=== PATIENT | female | born 1930 | race Caucasian/White ===

== ENCOUNTER 2016-09-02 07:14 | Inpatient (IN) ==
[2016-09-02] MEDS ORDERED: NITROGLYCERIN SL 0.4 MG TABLET SL PRN (07:41)
[2016-09-02] MEDS ORDERED: ASPIRIN 325 MG TABLET PO STA (07:41)
--- NOTE | 2016-09-02 07:48 | EKG Report ---
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
[2016-09-02 07:52] LABS: Basophils % 0.3 % (0.0-0.8); Eosinophils # 0.3 10*3/uL (0.0-0.87); Eosinophils % 2.1 % (0.00-10.9); Hematocrit 36.1 VOL% (35.7-47.0); Hemoglobin 11.7 GM/DL (12.0-16.0); Immature Granulocytes % 0.4 %; Immature Granulocytes Absolute 0.07 #; Lymphocytes # 0.9 10*3/uL (1.4-4.0); Lymphocytes % 5.7 % (21.3-54.2); Mean Corpuscular HGB Conc 32.4 GM/DL (32-36); Mean Corpuscular Hemoglobin 33 PG (27-34); Mean Corpuscular Volume 101.4 FL (87-102); Mean Platelet Volume 12.4 FL (9.6-12.0); Monocytes # 0.9 10*3/uL (0.11-0.8); Monocytes % 5.6 % (1.7-12.7); Neutrophils # 13.6 10*3/uL (1.4-7.4); Neutrophils % 85.9 % (38.7-73.9); Platelet Count 136 T/CUMM (130-400); Red Blood Count 3.56 MC/CUMM (3.8-5.5); Red Cell Distribution Width 14.4 % (9.3-17.3); White Blood Count 15.9 T/CUMM (4-12)
[2016-09-02] MEDS ORDERED: ASPIRIN 325 MG TABLET ONE (07:56)
[2016-09-02 08:10] LABS: Apearance,Urine CLOUDY (Clear); Bacteria,Urine Occasional /HPF (Few); Bilirubin,Urine Negative (Negative); Blood, Urine Small mg/dL (Negative); Glucose,Urine (UA) Negative (Negative); Hyaline Casts,Urine 1 /LPF (0-3); Ketones,Urine Negative (Negative); Nitrite,Urine Negative (Negative); Protein,Urine Negative; RBC,Urine 3 /HPF (0-4); Urine Color Yellow (Yellow); Urine Specific Gravity 1.008 (1.001-1.035); Urine Urobilinogen < 2.0 EU/DL (0.2-1.0); WBC,Urine 167 /HPF (0-6)
[2016-09-02 08:21] LABS: Albumin 3.6 G/DL (3.4-5.0); Bilirubin,Total 0.6 MG/DL (0.2-1.0); Calcium 8.9 MG/DL (8.5-10.1); Potassium 4.2 MMOL/L (3.5-5.1)
--- NOTE | 2016-09-02 09:02 | XRay Report ---
Portable chest Date:[09/02/2016] Clinical history: Chest pain Comparison: 12/08/2015 Technique: Portable AP sitting chest Findings: The heart is borderline in size with prior median sternotomy. Left subclavian ventricular permanent pacemaker with calcification in the aortic knob and mitral valve annulus. Chronic scarring in the lungs with skin folds. Stable mediastinum with degenerative changes and osteopenia. Impression: Status post median sternotomy with chronic scarring. Left subclavian ventricular permanent pacemaker with calcification in the mitral valve annulus. No significant change in the appearance of the chest when compared to previous exam. PROCEDURE INTERPRETED AT [facility] DEPARTMENT OF RADIOLOGY Final Report Signed by: Dr. Tomasa Vides
[2016-09-02] MEDS ORDERED: cefTRIAXone 1,000 MG in SODIUM CHLORIDE 0.9% 100 ML IV STA (09:16)
[2016-09-02] MEDS ORDERED: SODIUM CHLORIDE 0.9% 1,000 ML IV STA (09:16)
[2016-09-02] MEDS ORDERED: cefTRIAXone 1,000 MG VIAL ONE (09:19)
--- NOTE | 2016-09-02 09:56 | Emergency Department Note ---
José Luis Haddad Brittany, am scribing for, and in the presence of, Jordon Connell Jr., MD 07:48. Becki Haddad Marvin Jr., MD, personally performed the services described in this documentation, ascribed by Marcie Ordonez in my presence, and it is both accurate and complete 956 . Arrival - Arrival Chief Complaint: Chest Pain Stated Complaint: CP ED Nursing Triage Note: C/O Left upper CP X 1 hour FUSION JUNCTURE GRINDER. States pain is worse with deep breathing. Pt was recently DX with Kidney infection but has not yet filled her RX. Pt recd 5mg morphine IVP and zofran 4mg IVP FUSION JUNCTURE GRINDER. Mode of Arrival: Stretcher Limitations: No Limitations Source: Patient, Family, RN Notes Reviewed Time Seen by Provider: 09/02/16 07:28 - History of Present Illness HPI Narrative: Patient is a 85 y/o white female presenting to the ED by EMS with c/o left- sided chest pain with an onset of about an hour and a half FUSION JUNCTURE GRINDER. Patient states that she was woken out of her sleep with chest pain, that she describes as beginning in the left of the chest radiating down the left arm. Patient notes that as of now pain has progressively began to spread to the mid-sternal chest, radiating under the ribs into the back. Chest pain is worsened with deep breaths , but somewhat relieved with sitting up. Patient was diagnosed with a kidney infection two days ago per Dr. Carney, but has not taken prescribed antibiotics as of yet due to not having picked up medications from the pharmacy. Patient reports having some chills and slight abdominal pain with this. En route to the ED patient was given Zofran 4 mg and Morphine 5 mg. Family reports that patient has a history of CHF, Heart Valve Replacement, and a Pacemaker. Upon triage patient had a fever of 101. Patient has no other complaint/pain in the ED. Allergies/Adverse Reactions: Allergies Allergy/AdvReac Type Severity Reaction Status Date / Time clarithromycin [From Biaxin] Allergy RASH Verified 09/02/16 07:29 Home Medications: Home Medications Medication Instructions Recorded Confirmed Type Allopurinol 1 tablet PO BID 03/28/15 12/08/15 History Apixaban [Eliquis] 2.5 mg PO BID 03/28/15 12/08/15 History Atenolol 25 mg PO DAILY 03/28/15 12/08/15 History Clorazepate [Tranxene] 3.75 mg PO TID 03/28/15 12/08/15 History Diltiazem HCl [Cartia XT] 120 mg PO DAILY 03/28/15 12/08/15 History Multivitamin (Ocuvite) [Ocuvite] 1 tablet PO DAILY 03/28/15 12/08/15 History fentaNYL 25 MCG/HR PATCH 1 patch INTRADERM Q12HR 03/28/15 12/08/15 History [Duragesic 25 Patch] Furosemide Tab [Lasix Tab] 40 mg PO DAILY 12/08/15 12/08/15 History Omeprazole [Prilosec] 40 mg PO DAILY 12/08/15 12/08/15 History Ondansetron Tab [Zofran Tab] 4 - 8 mg PO Q8H 12/08/15 12/08/15 History Ondansetron [Ondansetron Odt] 4 mg PO Q4H PRN #10 tab.rapdis 12/08/15 Rx Potassium Chloride [Klor-Con M10] 1 tablet PO BID 12/08/15 12/08/15 History Spironolactone [Aldactone] 25 mg PO DAILY 12/08/15 12/08/15 History Review of System - Review of System 12 point system: reviewed and no additional remarkable complaints except as stated - Review of System Constitutional: Present: chills, fever Cardiovascular: Present: chest pain Gastrointestinal: Present: abdominal pain Musculoskeletal: Present: back pain Medical,Surgical,& Family Hx - Medical History Cardio: History of: Cardiac Dysrhythmia, CHF, Hypertension, Pacemaker (Dr Graves) Neurology: History of: Cerebrovascular Accident Respiratory: History of: Obstructive Sleep Apnea Renal: History of: Renal Problems (elevated creatinine) Gastrointestinal: History of: GERD - Social History Smoking Status: Never smoker Frequency of Alcohol Use: None Type of Drug Use: None Exam Physical Examination: General: Well-developed well-nourished, no apparent distress. Anxious. Patient says she could breathe better she could sit up. Patient moves around the bed easily, says she is cold Head: Normocephalic, atraumatic. Eyes: PERRLA, EOMI. Nose: No obvious acute deformities or discharge. Mouth: No obvious acute injury. Neck: Full range of motion without obvious pain. No midline tender to palpation. Lymphatic: no significant lymphadenopathy noted. Lungs: Clear to auscultation bilaterally, normal and equal air movement bilaterally, no obvious rales or wheezing. Heart: Tachycardia, Abdomen: Soft nontender, nondistended, normal active bowel sounds. Skin: No obivous acute lesions noted Musculoskeletal: No gross deformities. Neurological: No focal findings, cranial nerves II through XII grossly normal. Psychiatric: Anxious : Deferred Vital Signs: Vital Signs Temperature 101 F H 09/02/16 07:23 Pulse Rate 125 H 09/02/16 07:30 Respiratory Rate 20 09/02/16 07:30 Blood Pressure 160/91 09/02/16 07:23 O2 Sat by Pulse Oximetry 97 09/02/16 07:23 Course Course Narrative: Differential diagnosis ACS, chest wall pain, pulmonary edema, congestive heart failure, febrile illness, endocarditis, urinary tract infection, sepsis - Reevaluation(s) Reevaluation #1: Discussed with hospitalist service. They will come admit the patient to the hospital. Time: 09:54 Results - Labs CBC & BMP: 09/02/16 07:35 09/02/16 07:35 Lab Results: I have reviewed the patients labs Labs: Laboratory Tests 09/02/16 07:35 WBC 15.9 H RBC 3.56 L Hgb 11.7 L Hct 36.1 MCV 101.4 MCH 33 MCHC 32.4 RDW 14.4 Plt Count 136 MPV 12.4 H Neut % (Auto) 85.9 H Lymph % (Auto) 5.7 L [place] % (Auto) 5.6 Eos % (Auto) 2.1 Baso % (Auto) 0.3 Neut # (Auto) 13.6 H Lymph # (Auto) 0.9 L [place] # (Auto) 0.9 H Eos # (Auto) 0.3 Baso # (Auto) 0.0 Immature Gran % 0.4 Nucleated RBC % 0.0 Immature Gran # 0.07 Nucleated RBCs # 0.00 Laboratory Tests 09/02/16 07:35 Urine Color Yellow Urine Appearance Cloudy Urine pH 5.0 Ur Specific [place] 1.008 Urine Protein Negative Urine Glucose (UA) Negative Urine Ketones Negative Urine Blood Small Urine Nitrate Negative Urine Bilirubin Negative Urine Urobilinogen < 2.0 H Urine Leukocytes Moderate H Urine RBC 3 Urine WBC 167 Urine WBC Clumps Moderate Urine Bacteria Occasional Hyaline Casts 1 Microbiology 09/02/16 07:35 Nasal Aspirate Influenza Types A,B Antigen (CESAR) - Final Negative for Influenza A Ag Negative for Influenza B Ag Laboratory Tests 09/02/16 09/02/16 07:35 07:35 Sodium 143 Potassium 4.2 Chloride 105 Carbon Dioxide 26 Anion Gap 16.2 H BUN 53 H Creatinine 2.40 H GFR Calculation 18 BUN/Creatinine Ratio 22.00 H Glucose 109 H Calculated Osmolality 299.0 Calcium 8.9 Total Bilirubin 0.60 AST 21 ALT 19 Alkaline Phosphatase 165 H Troponin I 0.028 Total Protein 7.0 Albumin 3.6 Globulin 3.4 Albumin/Globulin Ratio 1.0 L - EKG EKG results: interpreted by ERMD (See EKG. Heart rate 139. Irregular. No obvious P waves. Poor quality tracing. No obvious acute ST changes. Interpretation atrial fibrillation with RVR. Nonspecific EKG otherwise.) - Diagnostic Findings Procedure: Chest x-ray: report reviewed by me, image reviewed by me (Status post sternotomy with chronic scarring. Left subclavian ventricular permanent pacemaker with calcification in the mitral valve annulus. No significant change in the appearance of the chest when compared to previous exam. I personally reviewed these chest x-rays and agree.) Disposition Clinical Impression: Acute dyspnea, Chest pain, Renal insufficiency, Urinary tract infection, Elevated serum alkaline phosphatase level, Mild sepsis, Neutrophilia, Febrile illness Case discussed with: patient, patient's family Disposition: Still a Patient Time of Disposition: 09:55
--- NOTE | 2016-09-02 10:33 | Hospitalist History & Physical ---
Assessment and Plan - Time spent with patient Time spent with patient: Greater than 30 minutes (1) Chest pain Status: Acute Current Visit: Yes (2) Sepsis Status: Acute Current Visit: No Qualifiers: Sepsis type: sepsis due to unspecified organism Qualified Code(s): A41.9 - Sepsis, unspecified organism (3) UTI (urinary tract infection) Status: Acute Current Visit: No Qualifiers: Urinary tract infection type: site unspecified Hematuria presence: without hematuria Qualified Code(s): N39.0 - Urinary tract infection, site not specified (4) Elevated serum creatinine Problem details: not clear if DUY or CKD or DUY on CKD Status: Acute Assessment and plan: check if renal US done and if FENA or FeUrea. Current Visit: Yes (5) A-fib Status: Chronic Assessment and plan: on A/C Current Visit: No Qualifiers: Atrial fibrillation type: chronic Qualified Code(s): I48.2 - Chronic atrial fibrillation (6) History of heart valve replacement Status: Chronic Current Visit: No History of Present Illness Chief complaint: fever and chest pain History of present illness: Ms. Hobbs is a 85 year old female with multiple chronic comorbidities including A. 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 Patient saw Dr. hernandez 3 days ago and was cold by the clinic for possible diagnosis of UTI and was prescribed an antibiotic that she has not picked up from the pharmacy. Patient chest pain is moderate 1 hour before coming to the ER , sharp, worse with deep breathing, with some radiation to the left side of the chest. Patient also states that she has gallbladder stones but did not do surgery because of her kidney disease. Patient denies palpitation or cough angle or headache or blurred vision vomiting or edema emesis or hemoptysis or melena. Patient was nauseated earlier today and patient feels some soreness in her abdomen. Home Medications Medication Instructions Recorded Confirmed Type Allopurinol 1 tablet PO BID 03/28/15 12/08/15 History Apixaban [Eliquis] 2.5 mg PO BID 03/28/15 12/08/15 History Atenolol 25 mg PO DAILY 03/28/15 12/08/15 History Clorazepate [Tranxene] 3.75 mg PO TID 03/28/15 12/08/15 History Diltiazem HCl [Cartia XT] 120 mg PO DAILY 03/28/15 12/08/15 History Multivitamin (Ocuvite) [Ocuvite] 1 tablet PO DAILY 03/28/15 12/08/15 History fentaNYL 25 MCG/HR PATCH 1 patch INTRADERM Q12HR 03/28/15 12/08/15 History [Duragesic 25 Patch] Furosemide Tab [Lasix Tab] 40 mg PO DAILY 12/08/15 12/08/15 History Omeprazole [Prilosec] 40 mg PO DAILY 12/08/15 12/08/15 History Ondansetron Tab [Zofran Tab] 4 - 8 mg PO Q8H 12/08/15 12/08/15 History Ondansetron [Ondansetron Odt] 4 mg PO Q4H PRN #10 tab.rapdis 12/08/15 Rx Potassium Chloride [Klor-Con M10] 1 tablet PO BID 12/08/15 12/08/15 History Spironolactone [Aldactone] 25 mg PO DAILY 12/08/15 12/08/15 History Allergies Allergy/AdvReac Type Severity Reaction Status Date / Time clarithromycin [From Biaxin] Allergy RASH Verified 09/02/16 07:29 Medical,Surgical,& Family Hx - Medical History Cardio: History of: Cardiac Dysrhythmia, CHF, Hypertension, Pacemaker (Dr Graves) Neurology: History of: Cerebrovascular Accident Respiratory: History of: Obstructive Sleep Apnea Renal: History of: Renal Problems (elevated creatinine) Gastrointestinal: History of: GERD - Social History Smoking Status: Never smoker Frequency of Alcohol Use: None Type of Drug Use: None - Constitutional Constitutional: Present: as per HPI Exam - Constitutional Vitals: Period Temp Pulse Resp BP Sys/Lamas Pulse Ox Last 24 Hr 101 F-101 F 125-125 20-20 160-160/91-91 97 Exam: General: Alert and oriented to self, place, date (day and month remembered after a pause, didn't know yr), NAD NecK: no JVD, supple lung: ctab, no wheezing heart: IRR, systolic mumur abd: mild tenderness epigastric and lower abd, no guarding, BS present EXT; no edema, cyanosis skin: warm, dry HEENT: PERRL psych: cooperative Results - Labs CBC & BMP: 09/02/16 07:35 09/02/16 07:35
[2016-09-02] MEDS ORDERED: ONDANSETRON 4 MG/2 ML VIAL IV PRN (10:44)
[2016-09-02] MEDS ORDERED: PANTOPRAZOLE 40 MG VIAL IV STA (10:54)
[2016-09-02] MEDS ORDERED: PANTOPRAZOLE 40 MG VIAL IV ONE (10:59)
[2016-09-02] MEDS ORDERED: cefTRIAXone 1,000 MG VIAL IM SCH (11:00)
[2016-09-02 11:42] LABS: Creatinine,Urine Random 40 MG/DL; Urea Nitrogen, Urine Random 421 MG/DL
--- NOTE | 2016-09-02 12:09 | Ultrasound Report ---
Exam: US abdomen Date: 09/02/2016 10:57 AM Comparison: 05/01/2016 Indication: Generalized abdominal, history of gallstones, elevated creatinine Technique: Multiple transabdominal real-time scans were obtained of the abdomen. Color flow scans obtained. Ultrasound images were captured and stored. Findings: Persistent hyperechoic foci in the gallbladder with posterior acoustical shadowing. The gallstones appear to move during the exam. The wall of the gallbladder is thickened measuring 5 mm with positive sonographic Peñaloza's sign. CBD is normal in size measuring 5 mm. The liver is normal in size with no masses.] Right kidney measures 98 mm in length with 9 mm simple appearing upper pole cyst. Left kidney measures 82 mm in length with 12 mm simple appearing upper pole cyst. The spleen and visualized pancreas and aorta have an unremarkable appearance. Portions of pancreas, aortic bifurcation, and aortic bifurcation are obscured by bowel gas. Color-flow documented in the IVC. Impression: Cholelithiasis. Gallbladder wall thickening with positive sonographic Peñaloza's sign which can be seen with possible acute cholecystitis. Biliary scan with ejection fraction may be helpful for further evaluation. Simple appearing renal cysts with cortical loss in the kidneys. Portions of pancreas and aorta are obscured by bowel gas. The Ultrasound images were captured and stored. PROCEDURE INTERPRETED AT [facility] DEPARTMENT OF RADIOLOGY Final Report Signed by: Dr. Tomasa Vides
[2016-09-02 14:04] LABS: Troponin I Only 0.348 NG/ML (0.00-0.045)
[2016-09-02] MEDS ORDERED: ALPRAZolam 0.25 MG TABLET PO PRN (16:47)
[2016-09-02] MEDS ORDERED: SODIUM CHLORIDE 0.9% 250 ML IV ONE (17:33)
[2016-09-02] MEDS: OXYBUTYNIN 5 MG TABLET PO SCH (18:00)
[2016-09-02] MEDS: SODIUM CHLORIDE 0.9% 1,000 ML IV SCH (20:52)
[2016-09-02] MEDS: APIXABAN 2.5 MG TABLET PO SCH (20:53)
[2016-09-02] MEDS: ALLOPURINOL 100 MG TABLET PO SCH (20:53)
[2016-09-02] MEDS: URSODIOL 300 MG CAPSULE PO SCH (20:53)
[2016-09-03 03:58] LABS: Basophils % 0.3 % (0.0-0.8); Eosinophils # 0.2 10*3/uL (0.0-0.87); Eosinophils % 1.4 % (0.00-10.9); Hematocrit 30.4 VOL% (35.7-47.0); Hemoglobin 9.7 GM/DL (12.0-16.0); Immature Granulocytes % 0.6 %; Immature Granulocytes Absolute 0.08 #; Lymphocytes # 1.4 10*3/uL (1.4-4.0); Lymphocytes % 11.1 % (21.3-54.2); Mean Corpuscular HGB Conc 31.9 GM/DL (32-36); Mean Corpuscular Hemoglobin 33 PG (27-34); Mean Corpuscular Volume 103.1 FL (87-102); Mean Platelet Volume 12.6 FL (9.6-12.0); Monocytes # 1.3 10*3/uL (0.11-0.8); Monocytes % 9.8 % (1.7-12.7); Neutrophils # 9.9 10*3/uL (1.4-7.4); Neutrophils % 76.8 % (38.7-73.9); Platelet Count 105 T/CUMM (130-400); Red Blood Count 2.95 MC/CUMM (3.8-5.5); Red Cell Distribution Width 14.6 % (9.3-17.3); White Blood Count 12.8 T/CUMM (4-12)
[2016-09-03 04:29] LABS: Albumin 2.7 G/DL (3.4-5.0); Bilirubin,Total 1.2 MG/DL (0.2-1.0); Calcium 8.1 MG/DL (8.5-10.1); Potassium 4.7 MMOL/L (3.5-5.1); Total Protein 5.3 G/DL (6.4-8.3)
[2016-09-03] MEDS ORDERED: cefTRIAXone 1,000 MG VIAL IM SCH (09:30)
[2016-09-03] MEDS ORDERED: cefTRIAXone 1,000 MG in SODIUM CHLORIDE 0.9% 100 ML IV SCH (09:30)
[2016-09-03] MEDS: PANTOPRAZOLE 40 MG TABLET PO SCH (10:03)
[2016-09-03] MEDS: MULTIVITAMIN (OCUVITE) TABLET PO SCH (10:03)
[2016-09-03] MEDS: URSODIOL 300 MG CAPSULE PO SCH ×2 (10:04→21:27)
[2016-09-03] MEDS: APIXABAN 2.5 MG TABLET PO SCH ×2 (10:05→21:26)
[2016-09-03] MEDS: ALLOPURINOL 100 MG TABLET PO SCH ×2 (10:05→21:26)
[2016-09-03] MEDS: OXYBUTYNIN 5 MG TABLET PO SCH (10:05)
--- NOTE | 2016-09-03 11:36 | EKG Report ---
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
--- NOTE | 2016-09-03 12:13 | Hospitalist Progress Note ---
Assessment and Plan (1) Chest pain Status: Acute Assessment and plan: Improved, likely musculoskeletal Current Visit: Yes (2) Sepsis Problem details: Could be from UTI or possibly from suspected cholecystitis Status: Acute Current Visit: No Qualifiers: Sepsis type: sepsis due to unspecified organism Qualified Code(s): A41.9 - Sepsis, unspecified organism (3) Elevated troponin I level Status: Acute Assessment and plan: First troponin negative, second troponin 0.34, no M.D. contacted, check another troponin and EKG start. This could be likely due to increased demand ischemia from sepsis and kidney insufficiency Current Visit: Yes (4) UTI (urinary tract infection) Problem details: Gram-negative rods on urine culture so far Status: Acute Assessment and plan: Continue with antibiotics, clinically improving Current Visit: No Qualifiers: Urinary tract infection type: site unspecified Hematuria presence: without hematuria Qualified Code(s): N39.0 - Urinary tract infection, site not specified (5) Cholelithiasis Problem details: With gallbladder wall thickening and Peñaloza's sign on ultrasound suspecting possible evolving cholecystitis. However the patient is clinically doing okay today and tolerating by mouth intake Status: Acute Assessment and plan: Appreciated discussion with the surgeon who will be evaluating the patient Current Visit: Yes (6) Elevated serum creatinine Problem details: not clear if DUY or CKD or DUY on CKD Status: Acute Assessment and plan: FeUrea 46 %, ultrasound showing renal cortical loss and simple looking cysts, will consult nephrology Current Visit: Yes (7) A-fib Status: Chronic Assessment and plan: on A/C Current Visit: No Qualifiers: Atrial fibrillation type: chronic Qualified Code(s): I48.2 - Chronic atrial fibrillation (8) History of heart valve replacement Status: Chronic Current Visit: No (9) Debility Status: Acute Assessment and plan: PTOT Current Visit: Yes Hospitalist: Subjective Interval history: Patient more alert today and conversant. Family members visiting. Patient denies chest pain or shortness of breath or nausea or vomiting or abdominal pain or palpitation or hemoptysis or hematemesis. No fever or chills reported. Exam - Constitutional Vitals: Period Temp Pulse Resp BP Sys/Lamas Pulse Ox Last 24 Hr 97.7 F-98.9 F 77-101 20-20 93-109/51-59 93-98 Exam: General: Alert and oriented to self, place, date (day and month remembered after a pause, didn't know yr), NAD NecK: no JVD, supple lung: ctab, no wheezing heart: IRR, systolic mumur abd: Soft, mild right upper quadrant tenderness, no guarding, BS present EXT; no edema, cyanosis skin: warm, dry HEENT: PERRL psych: cooperative Results - Labs CBC & BMP: 09/03/16 03:39 09/03/16 03:39
--- NOTE | 2016-09-03 14:50 | General Surgery Consult Note ---
Assessment and Plan - Time spent with patient Time spent with patient: Greater than 30 minutes (1) Cholelithiasis Problem details: With gallbladder wall thickening and Peñaloza's sign on ultrasound suspecting possible evolving cholecystitis. However the patient is clinically doing okay today and tolerating by mouth intake Status: Acute Assessment and plan: This appears to be an acute worsening of a chronic problem. I reviewed her previous admissions and studies from before this admission and this appears to at least date back for several months. The patient does not appear to be in distress. It is unclear if the fever that she had on admission was from this problem or from her urinary tract infection. Her abdominal exam is not very impressive and she certainly does not appear toxic appearing. She is a poor candidate for surgery which is probably why conservative treatment was recommended before. I would not recommend operative treatment at this point. I agree with treatment with IV fluids and IV antibiotics and another option to consider which I discussed with the patient and her family at length with the percutaneous drainage through radiology. I think that laparoscopic cholecystectomy would carry a very high risk of operative morbidity and even mortality and we'll also have high risk of conversion to an open procedure. Current Visit: Yes Qualifiers: Cholelithiasis location: gallbladder Cholecystitis presence: with cholecystitis (2) Acute on chronic renal failure Status: Acute Assessment and plan: This will increase her perioperative risk Current Visit: No (3) Urinary tract infection Status: Acute Assessment and plan: It is unclear if this is the source of her fever. Her gallbladder could also be a fever source Current Visit: Yes (4) History of heart valve replacement Status: Chronic Assessment and plan: She is on chronic anticoagulation and this certainly will create problems at operative intervention is needed. I will leave it up to you about holding her [facility] course. Current Visit: No History of Present Illness Chief complaint: abdominal pain History of present illness: Ms. Hobbs is a 85 year old female He was admitted with left-sided chest pain. She has had persistent pain in her abdomen dating back for several months and was a regular patient of Dr. Carney was done a workup showing gallstones and also a HIDA scan back in April which showed a decreased gallbladder ejection fraction. Patient states that Dr. Carney got an opinion from a surgeon and that conservative treatment was recommended. I do not remember if I saw her in the past or not they don't have records of this on the weekend. She is continuing to have intermittent right upper quadrant pain but it is become more frequent and is only mild in severity. She is had some nausea with it. It is worse if she eats. She had an ultrasound showing gallstones and a thickened gallbladder and a normal size common bile duct today. She states that she has had some chills in the last week and is had a decreased appetite. Home Medications Medication Instructions Recorded Confirmed Type Allopurinol 1 tablet PO BID 03/28/15 09/02/16 History Apixaban [Eliquis] 2.5 mg PO BID 03/28/15 09/02/16 History Clorazepate [Tranxene] 3.75 mg PO BID PRN 03/28/15 09/02/16 History Multivitamin (Ocuvite) [Ocuvite] 1 tablet PO DAILY 03/28/15 09/02/16 History fentaNYL 25 MCG/HR PATCH 1 patch INTRADERM Q12HR 03/28/15 09/02/16 History [Duragesic 25 Patch] Furosemide Tab [Lasix Tab] 40 mg PO BID 12/08/15 09/02/16 History Potassium Chloride [Klor-Con M10] 1 tablet PO BID 12/08/15 09/02/16 History Spironolactone [Aldactone] 25 mg PO DAILY 12/08/15 09/02/16 History Esomeprazole Magnesium [Nexium] 40 mg PO DAILY 09/02/16 09/02/16 History Losartan Potassium 100 mg PO DAILY 09/02/16 09/02/16 History Ursodiol 300 mg PO BID 09/02/16 09/02/16 History Allergies Allergy/AdvReac Type Severity Reaction Status Date / Time clarithromycin [From Biaxin] Allergy RASH Verified 09/02/16 07:29 Medical,Surgical,& Family Hx - Medical History Cardio: History of: Cardiac Dysrhythmia, CHF, Hypertension, Pacemaker (Dr Graves) Neurology: History of: Cerebrovascular Accident Respiratory: History of: Obstructive Sleep Apnea Renal: History of: Renal Problems (elevated creatinine) Gastrointestinal: History of: GERD - Surgical History Cardiac Surgeries: Sugical HX of: Cardiac Catheterization - Family History Family History: Reports;: Family Hypertension - Social History Smoking Status: Never smoker Frequency of Alcohol Use: None Type of Drug Use: None - Constitutional Constitutional: Present: anorexia, chills, fever(s), night sweats, weight loss - EENT Nose, mouth and throat: Absent: dysphagia, hoarseness, sore throat - Cardiovascular Cardiovascular: Present: chest pain at rest, dyspnea. Absent: chest pain with activity, dyspnea on exertion, syncope - Respiratory Respiratory: Present: dyspnea. Absent: cough, hemoptysis, dyspnea on exertion - Gastrointestinal Gastrointestinal: Present: abdominal pain, nausea, vomiting. Absent: bloating, coffee ground emesis, cramping, hematemesis, hematochezia, melena, jaundice - Genitourinary Genitourinary: Present: dysuria. Absent: hematuria - Musculoskeletal Musculoskeletal: Present: back pain - Neurological Neurological: Absent: focal weakness, syncope - Endocrine Endocrine: Absent: polyuria Hematologic/Lymphatic: Present: easy bleeding, easy bruising Exam - Constitutional Vitals: Period Temp Pulse Resp BP Sys/Lamas Pulse Ox Last 24 Hr 97.7 F-98.4 F 77-93 20-20 93-109/51-59 93-98 General appearance: no acute distress - Head Head exam: Present: normocephalic - Eye Eye exam: Absent: scleral icterus - ENT Mouth exam: Present: normal voice - Neck Neck exam: Present: trachea midline - Respiratory Respiratory exam: Present: clear to auscultation bilaterally. Absent: accessory muscle use - Cardiovascular Cardiovascular exam: Present: RRR - GI/Abdominal GI/Abdominal exam: Present: tenderness (mild in the right upper quadrant), soft. Absent: distended, guarding, mass, Peñaloza's sign, rebound - Extremities Exam Extremities exam: Absent: edema - Neurological Exam Neurological exam: Present: alert, oriented X3. Absent: motor sensory deficit Speech: Present: normal - Skin Skin exam: Present: normal color Results - Labs CBC & BMP: 09/03/16 03:39 09/03/16 03:39 Lab Results: I have reviewed the past 24 hour labs - Diagnostic Findings Procedure: Ultrasound: report reviewed by me
[2016-09-03] MEDS ORDERED: fentaNYL 12 MCG/HR PATCH TRANSDERM SCH (15:30)
[2016-09-03] MEDS: SODIUM CHLORIDE 0.9% 1,000 ML IV SCH (16:00)
[2016-09-03] MEDS: POLYETHYLENE GLYCOL POWDER 17 GM PACK PO SCH (16:30)
[2016-09-03] MEDS: PIPERACILLIN/TAZOBACTAM 3,375 MG in SODIUM CHLORIDE 0.9% 100 ML IV SCH (19:51)
[2016-09-04] MEDS: PIPERACILLIN/TAZOBACTAM 3,375 MG in SODIUM CHLORIDE 0.9% 100 ML IV SCH ×3 (05:15→21:17)
[2016-09-04 06:41] LABS: Basophils % 0.2 % (0.0-0.8); Eosinophils # 0.5 10*3/uL (0.0-0.87); Eosinophils % 4.5 % (0.00-10.9); Hematocrit 26.7 VOL% (35.7-47.0); Hemoglobin 8.5 GM/DL (12.0-16.0); Immature Granulocytes % 0.3 %; Immature Granulocytes Absolute 0.03 #; Lymphocytes # 1.6 10*3/uL (1.4-4.0); Lymphocytes % 16.1 % (21.3-54.2); Mean Corpuscular HGB Conc 31.8 GM/DL (32-36); Mean Corpuscular Hemoglobin 32 PG (27-34); Mean Corpuscular Volume 101.5 FL (87-102); Mean Platelet Volume 12.6 FL (9.6-12.0); Monocytes # 0.8 10*3/uL (0.11-0.8); Monocytes % 8.2 % (1.7-12.7); Neutrophils # 7.1 10*3/uL (1.4-7.4); Neutrophils % 70.7 % (38.7-73.9); Platelet Count 102 T/CUMM (130-400); Red Blood Count 2.63 MC/CUMM (3.8-5.5); Red Cell Distribution Width 14.6 % (9.3-17.3); White Blood Count 10.1 T/CUMM (4-12)
[2016-09-04 07:04] LABS: Calcium 7.9 MG/DL (8.5-10.1); Osmolality,Calculated 296.8 MOS/KG (273-304)
[2016-09-04 07:05] LABS: Hypochromasia 1+; Ovalocytes Slight; Platelet Estimate Decreased
[2016-09-04] MEDS: OXYBUTYNIN 5 MG TABLET PO SCH (09:22)
[2016-09-04] MEDS: PANTOPRAZOLE 40 MG TABLET PO SCH (09:22)
[2016-09-04] MEDS: POLYETHYLENE GLYCOL POWDER 17 GM PACK PO SCH (09:22)
[2016-09-04] MEDS: ALLOPURINOL 100 MG TABLET PO SCH ×2 (09:22→21:17)
[2016-09-04] MEDS: MULTIVITAMIN (OCUVITE) TABLET PO SCH (09:22)
[2016-09-04] MEDS: URSODIOL 300 MG CAPSULE PO SCH ×2 (09:22→21:16)
[2016-09-04] MEDS: APIXABAN 2.5 MG TABLET PO SCH ×2 (09:22→21:17)
--- NOTE | 2016-09-04 09:26 | Hospitalist Progress Note ---
Assessment and Plan (1) Sepsis Problem details: Could be from UTI or possibly from suspected cholecystitis Status: Acute Assessment and plan: Clinically improving, continue antibiotics Current Visit: No Qualifiers: Sepsis type: sepsis due to unspecified organism Qualified Code(s): A41.9 - Sepsis, unspecified organism (2) Chest pain Status: Acute Assessment and plan: Improved, likely musculoskeletal Current Visit: Yes (3) Elevated troponin I level Status: Acute Assessment and plan: In the setting of sepsis and kidney insufficiency. First troponin negative to 0.34 to 0.227, no M.D. contacted. Patient has a history of A. fib and pacemaker placement. Medical management. Current Visit: Yes (4) UTI (urinary tract infection) Problem details: Gram-negative rods on urine culture so far Status: Acute Assessment and plan: Continue with antibiotics, clinically improving Current Visit: No Qualifiers: Urinary tract infection type: site unspecified Hematuria presence: without hematuria Qualified Code(s): N39.0 - Urinary tract infection, site not specified (5) Cholelithiasis Problem details: With gallbladder wall thickening and Peñaloza's sign on ultrasound suspecting possible evolving cholecystitis. However the patient is clinically doing okay today and tolerating by mouth intake. Status: Acute Assessment and plan: Appreciated general surgery evaluation. Appears to be acute on chronic problem and no recommendation for any surgical intervention at this time as the patient is a poor candidate for it. Supportive care Current Visit: Yes Qualifiers: Cholelithiasis location: gallbladder Cholecystitis presence: with cholecystitis (6) Elevated serum creatinine Problem details: not clear if DUY or CKD or DUY on CKD Status: Acute Assessment and plan: FeUrea 46 %, ultrasound showing renal cortical loss and simple looking cysts Nephrology consulted. Creatinine 2.4 down to 2.1. Could be DUY/ATN on CKD Current Visit: Yes (7) Normocytic anemia Status: Acute Assessment and plan: iron studies and occult, H/H. Hb 8.5 Current Visit: Yes (8) A-fib Status: Chronic Assessment and plan: on A/C Current Visit: No Qualifiers: Atrial fibrillation type: chronic Qualified Code(s): I48.2 - Chronic atrial fibrillation (9) History of heart valve replacement Status: Chronic Current Visit: No (10) History of permanent cardiac pacemaker placement Status: Chronic Current Visit: Yes (11) Debility Status: Acute Assessment and plan: PTOT Current Visit: Yes Hospitalist: Subjective Interval history: Patient's abdominal pain has improved. Patient denies chest pain or SOB or nausea or vomiting or fever or chills or hemoptysis or hematemesis or diarrhea. No acute events reported overnight. Physician tolerating by mouth intake. Exam - Constitutional Vitals: Period Temp Pulse Resp BP Sys/Lamas Pulse Ox Last 24 Hr 97.8 F-98.9 F 66-83 18-20 109-126/52-64 93-100 Exam: General: Alert and oriented to self, place, date (day and month remembered after a pause, didn't know yr), NAD NecK: no JVD, supple lung: ctab, no wheezing heart: IRR, systolic mumur abd: Soft, mild right upper quadrant tenderness, no guarding, BS present EXT; no edema, cyanosis skin: warm, dry HEENT: PERRL psych: cooperative Results - Labs CBC & BMP: 09/04/16 06:16 09/04/16 06:16
[2016-09-04 10:28] LABS: % Iron Saturation 10.8 % (18-50); Ferritin 121.6 ng/ml (8-252)
--- NOTE | 2016-09-04 13:15 | Nephrology Consult Note ---
History of Present Illness Chief complaint: chronic renal failure History of present illness: Ms. Hobbs is a 85 year old female admitted with chest and abdominal pain. She has a history of chronic renal insufficiency. I was asked to see her for evaluation of this. She had dysuria prior to admission. She has received antibiotics and dysuria is much improved. She has had no gross hematuria. No history of nephrolithiasis. She has no symptoms of volume overload. Home Medications Medication Instructions Recorded Confirmed Type Allopurinol 1 tablet PO BID 03/28/15 09/02/16 History Apixaban [Eliquis] 2.5 mg PO BID 03/28/15 09/02/16 History Clorazepate [Tranxene] 3.75 mg PO BID PRN 03/28/15 09/02/16 History Multivitamin (Ocuvite) [Ocuvite] 1 tablet PO DAILY 03/28/15 09/02/16 History fentaNYL 25 MCG/HR PATCH 1 patch INTRADERM Q12HR 03/28/15 09/02/16 History [Duragesic 25 Patch] Furosemide Tab [Lasix Tab] 40 mg PO BID 12/08/15 09/02/16 History Potassium Chloride [Klor-Con M10] 1 tablet PO BID 12/08/15 09/02/16 History Spironolactone [Aldactone] 25 mg PO DAILY 12/08/15 09/02/16 History Esomeprazole Magnesium [Nexium] 40 mg PO DAILY 09/02/16 09/02/16 History Losartan Potassium 100 mg PO DAILY 09/02/16 09/02/16 History Ursodiol 300 mg PO BID 09/02/16 09/02/16 History Allergies Allergy/AdvReac Type Severity Reaction Status Date / Time clarithromycin [From Biaxin] Allergy RASH Verified 09/02/16 07:29 Medical,Surgical,& Family Hx - Medical History Cardio: History of: Cardiac Dysrhythmia, CHF, Hypertension, Pacemaker (Dr Graves) Neurology: History of: Cerebrovascular Accident Respiratory: History of: Obstructive Sleep Apnea Renal: History of: Renal Problems (elevated creatinine) Gastrointestinal: History of: GERD - Surgical History Cardiac Surgeries: Sugical HX of: Cardiac Catheterization - Family History Family History: Reports;: Family Hypertension - Social History Smoking Status: Never smoker Frequency of Alcohol Use: None Type of Drug Use: None Review of Systems 12 point system: reviewed and no additional remarkable complaints except as stated Exam - Vital Signs Vital signs: Period Temp Pulse Resp BP Sys/Lamas Pulse Ox Last 24 Hr 97.8 F-98.1 F 66-83 18-20 110-126/52-64 93-100 Exam: Gen.: Alert and oriented x3. ENT: Pupils equal round reactive to light. EOMs intact. Mucous membranes moist. Neck: Supple. No JVD or bruit. Cardiovascular: Irregularly irregular rhythm Lungs: Clear Abdomen: Soft. Mild right upper quadrant tenderness Extremities: Trace edema Results - Labs CBC & BMP: 09/04/16 06:16 09/04/16 06:16 Assessment and Plan (1) Chronic renal failure, stage 3 (moderate) Status: Acute Assessment and plan: 85-year-old woman admitted with: * Chronic renal failure, stage III. Baseline creatinine between 2 and 2.5 between April 2015 and the time of this admission. Creatinine has improved slightly from 2.4-2.1 since admission. * Urinary tract infection. Symptomatically improved with antibiotics * Cholelithiasis * Chronic A. fib * Prosthetic aortic valve Current Visit: Yes (2) Chest pain Status: Acute Current Visit: Yes (3) Cholelithiasis Problem details: With gallbladder wall thickening and Peñaloza's sign on ultrasound suspecting possible evolving cholecystitis. However the patient is clinically doing okay today and tolerating by mouth intake. Status: Acute Current Visit: Yes Qualifiers: Cholelithiasis location: gallbladder Cholecystitis presence: with cholecystitis (4) Urinary tract infection Status: Acute Current Visit: No (5) A-fib Status: Chronic Current Visit: No Qualifiers: Atrial fibrillation type: chronic Qualified Code(s): I48.2 - Chronic atrial fibrillation (6) History of heart valve replacement Status: Chronic Current Visit: No
--- NOTE | 2016-09-04 14:42 | General Surgery Progress Note ---
Assessment and Plan (1) Cholelithiasis Problem details: With gallbladder wall thickening and Peñaloza's sign on ultrasound suspecting possible evolving cholecystitis. However the patient is clinically doing okay today and tolerating by mouth intake. Status: Acute Assessment and plan: This appears to be an acute worsening of a chronic problem. I reviewed her previous admissions and studies from before this admission and this appears to at least date back for several months. The patient does not appear to be in distress. It is unclear if the fever that she had on admission was from this problem or from her urinary tract infection. Her abdominal exam is not very impressive and she certainly does not appear toxic appearing. She is a poor candidate for surgery which is probably why conservative treatment was recommended before. I would not recommend operative treatment at this point. I agree with treatment with IV fluids and IV antibiotics and another option to consider which I discussed with the patient and her family at length with the percutaneous drainage through radiology. I think that laparoscopic cholecystectomy would carry a very high risk of operative morbidity and even mortality and we'll also have high risk of conversion to an open procedure. To 6: Actually saw the patient this morning and this note is a late entry. The patient was very hungry and does not abdominal pain. Her tenderness was largely resolved. She is a high risk for operative intervention I did discuss her case with radiology and they would prefer not to do a procedure with her anticoagulation which is understandable. The patient is improving on antibiotics. I am hesitant at this point to push forward with percutaneous drainage with her anticoagulated I think we can watch for now and see how she does with conservative treatment and likelihood to hold her anticoagulation in case we need to do a percutaneous drainage in the next day or 2. Current Visit: Yes Qualifiers: Cholelithiasis location: gallbladder Cholecystitis presence: with cholecystitis (2) Acute on chronic renal failure Status: Acute Assessment and plan: This will increase her perioperative risk Current Visit: No (3) Urinary tract infection Status: Acute Assessment and plan: It is unclear if this is the source of her fever. Her gallbladder could also be a fever source Current Visit: Yes (4) History of heart valve replacement Status: Chronic Assessment and plan: She is on chronic anticoagulation and this certainly will create problems at operative intervention is needed. I will leave it up to you about holding her [facility] course. Current Visit: No Subjective Patient reports: Present: feels better, pain is less. Absent: nausea, vomiting , fever Exam - Constitutional Vitals: Period Temp Pulse Resp BP Sys/Lamas Pulse Ox Last 24 Hr 97.4 F-98.1 F 66-83 18-20 110-134/52-67 93-100 General appearance: no acute distress - Head Head exam: Present: normocephalic - Eye Eye exam: Absent: scleral icterus - ENT Mouth exam: Present: normal voice - Neck Neck exam: Present: trachea midline - Respiratory Respiratory exam: Absent: accessory muscle use - GI/Abdominal GI/Abdominal exam: Present: soft. Absent: distended, mass, tenderness, rebound - Neurological Exam Neurological exam: Present: alert, oriented X3 Results - Labs CBC & BMP: 09/04/16 06:16 09/04/16 06:16 Lab Results: I have reviewed the past 24 hour labs
[2016-09-04] MEDS: SODIUM CHLORIDE 0.9% 1,000 ML IV SCH (18:17)
[2016-09-05] MEDS: PIPERACILLIN/TAZOBACTAM 3,375 MG in SODIUM CHLORIDE 0.9% 100 ML IV SCH (05:12)
[2016-09-05 05:57] LABS: Basophils # 0.1 10*3/uL (0.0-0.2); Basophils % 0.5 % (0.0-0.8); Eosinophils # 0.5 10*3/uL (0.0-0.87); Eosinophils % 4.9 % (0.00-10.9); Hematocrit 26.2 VOL% (35.7-47.0); Hemoglobin 8.6 GM/DL (12.0-16.0); Immature Granulocytes % 0.4 %; Immature Granulocytes Absolute 0.04 #; Lymphocytes # 1.8 10*3/uL (1.4-4.0); Lymphocytes % 17.4 % (21.3-54.2); Mean Corpuscular HGB Conc 32.8 GM/DL (32-36); Mean Corpuscular Hemoglobin 33 PG (27-34); Mean Corpuscular Volume 101.6 FL (87-102); Mean Platelet Volume 12.1 FL (9.6-12.0); Monocytes # 0.7 10*3/uL (0.11-0.8); Monocytes % 7.1 % (1.7-12.7); Neutrophils # 7.2 10*3/uL (1.4-7.4); Neutrophils % 69.7 % (38.7-73.9); Platelet Count 108 T/CUMM (130-400); Red Blood Count 2.58 MC/CUMM (3.8-5.5); Red Cell Distribution Width 14.8 % (9.3-17.3); White Blood Count 10.4 T/CUMM (4-12)
[2016-09-05 06:33] LABS: Calcium 7.9 MG/DL (8.5-10.1); Osmolality,Calculated 301.4 MOS/KG (273-304); Potassium 4.3 MMOL/L (3.5-5.1)
--- NOTE | 2016-09-05 07:15 | General Surgery Progress Note ---
Assessment and Plan (1) Cholelithiasis Problem details: With gallbladder wall thickening and Peñaloza's sign on ultrasound suspecting possible evolving cholecystitis. However the patient is clinically doing okay today and tolerating by mouth intake. Status: Acute Assessment and plan: This appears to be an acute worsening of a chronic problem. I reviewed her previous admissions and studies from before this admission and this appears to at least date back for several months. The patient does not appear to be in distress. It is unclear if the fever that she had on admission was from this problem or from her urinary tract infection. Her abdominal exam is not very impressive and she certainly does not appear toxic appearing. She is a poor candidate for surgery which is probably why conservative treatment was recommended before. I would not recommend operative treatment at this point. I agree with treatment with IV fluids and IV antibiotics and another option to consider which I discussed with the patient and her family at length with the percutaneous drainage through radiology. I think that laparoscopic cholecystectomy would carry a very high risk of operative morbidity and even mortality and we'll also have high risk of conversion to an open procedure. To 6: Actually saw the patient this morning and this note is a late entry. The patient was very hungry and does not abdominal pain. Her tenderness was largely resolved. She is a high risk for operative intervention I did discuss her case with radiology and they would prefer not to do a procedure with her anticoagulation which is understandable. The patient is improving on antibiotics. I am hesitant at this point to push forward with percutaneous drainage with her anticoagulated I think we can watch for now and see how she does with conservative treatment and likelihood to hold her anticoagulation in case we need to do a percutaneous drainage in the next day or 2. 09/05: She feels well and denies any abdominal pain this morning. She has not had nausea or vomiting and tolerated a diet yesterday without abdominal pain. She appears to have responded to antibiotics. I would say that if she has any further symptoms I would be percutaneous drainage. At this point she has become asymptomatic. Current Visit: Yes Qualifiers: Cholelithiasis location: gallbladder Cholecystitis presence: with cholecystitis (2) Acute on chronic renal failure Status: Acute Assessment and plan: This will increase her perioperative risk Current Visit: No (3) Urinary tract infection Status: Acute Assessment and plan: It is unclear if this is the source of her fever. Her gallbladder could also be a fever source Current Visit: Yes (4) History of heart valve replacement Status: Chronic Assessment and plan: She is on chronic anticoagulation and this certainly will create problems at operative intervention is needed. I will leave it up to you about holding her [facility] course. Current Visit: No Subjective Patient reports: Present: feels better. Absent: still having pain, nausea, vomiting, shortness of breath, fever Exam - Constitutional Vitals: Period Temp Pulse Resp BP Sys/Lamas Pulse Ox Last 24 Hr 97.4 F-98.4 F 72-81 18-20 96-134/52-70 93-98 General appearance: no acute distress - ENT Mouth exam: Present: normal voice - Respiratory Respiratory exam: Absent: accessory muscle use - GI/Abdominal GI/Abdominal exam: Present: soft. Absent: distended, tenderness, rebound - Neurological Exam Neurological exam: Present: alert, oriented X3 Speech: Present: normal Results - Labs CBC & BMP: 09/05/16 05:43 09/05/16 05:43 Lab Results: I have reviewed the past 24 hour labs
--- NOTE | 2016-09-05 08:29 | ECHO Report ---
Lena Hobbs 09/04/2016 Exam Date: 11:37 Referring Physician: Shanti Rg Technologist: JOANA Age: 85 Ht (in): Wt (lb): FExam Location: [facility] Gender: Echo [id number]: Dyspnea, unspecified, Chest pain, Indications:unspecified, Elevated troponin, Sepsis, ARIELLE, Presence of cardiac pacemaker, Atrial fibrillation, hx AVR, Chronic renal failure BP: / HR: unknown and irregularRhythm: fairTechnical Quality: IMPRESSIONS 1. Left ventricle overall appears be normal size and systolic function with an ejection fraction 55+ percent. No gross segmental wall motion abnormalities in there may be some mild concentric left ventricular hypertrophy. 2. Underlying rhythm is not really known but at times appears to be paced. 3. Left atrium may be mildly dilated. 4. Mitral valve is sclerotic with mitral and calcification moderate mitral regurgitation. 5. Aortic valve is a prosthetic device with mild insufficiency. 6. Tricuspid valve with mild regurgitation. 7. Mildly elevated right-sided pressures. MEASUREMENTS (Male / Female) Normal Values 2D ECHO LV Diastolic Diameter PLAX 4.6 cm 4.2 - 5.9 / 3.9 - 5.3 cm LV Systolic Diameter PLAX 2.9 cm LV Fractional Shortening PLAX 35.4 % IVS Diastolic Thickness 1.2 cm 0.6 - 1.0 / 0.6 - 0.9 cm LVPW Diastolic Thickness 1.2 cm 0.6 - 1.0 / 0.6 - 0.9 cm RV Internal Dim ED PLAX 3.2 cm Aortic Root Diameter 2.7 cm LA Systolic Diameter LX 4.7 cm 3.0 - 4.0 / 2.7 - 3.8 cm DOPPLER TR Peak Velocity 293.0 cm/s TR Peak Gradient 34.3 mmHg FINDINGS Left Ventricle Left ventricle is normal size with mild concentric left ventricle hypertrophy. Overall ejection fraction is normal at 55-65%. No segmental wall motion abnormality is are noted. Right Ventricle Normal right ventricular size and systolic function. Pacemaker wire visualized in the right ventricle. Right Atrium Moderately increased right atrial size. Pacemaker wire in the right atrial cavity. Left Atrium Moderately increased left atrial size. Mitral Valve Mildly thickened mitral valve. Moderate mitral annular calcification. Moderate mitral valve regurgitation. Aortic Valve Prosthetic aortic valve. Mean gradient 27 mmHg, QUINTIN 0.75 cm. Mild aortic valve regurgitation. Tricuspid Valve Morphologically normal tricuspid valve. Mild tricuspid valve regurgitation. Tricuspid regurgitation velocities suggest a PAP of 44 mmHg. Pulmonic Valve Morphologically normal pulmonic valve without significant stenosis. There is no pulmonic regurgitation of significance. Pericardium Normal pericardium without effusion. Aorta Normal ascending aorta dimension. Jeffery Smith MD (Electronically Signed) 04 September 2016 Final Date: 19:41
[2016-09-05] MEDS: URSODIOL 300 MG CAPSULE PO SCH (09:14)
[2016-09-05] MEDS: APIXABAN 2.5 MG TABLET PO SCH (09:14)
[2016-09-05] MEDS: POLYETHYLENE GLYCOL POWDER 17 GM PACK PO SCH (09:14)
[2016-09-05] MEDS: PANTOPRAZOLE 40 MG TABLET PO SCH (09:14)
[2016-09-05] MEDS: MULTIVITAMIN (OCUVITE) TABLET PO SCH (09:14)
[2016-09-05] MEDS: OXYBUTYNIN 5 MG TABLET PO SCH (09:14)
[2016-09-05] MEDS: ALLOPURINOL 100 MG TABLET PO SCH (09:15)
--- NOTE | 2016-09-05 11:37 | Nephrology Progress Note ---
Nephrology - PN: Subj Interval history: She feels better overall today. No shortness of breath. No abdominal pain. Exam (PN)-Nephrology - Vital Signs Vital signs: Period Temp Pulse Resp BP Sys/Lamas Pulse Ox Last 24 Hr 97.4 F-98.4 F 72-81 18-20 96-134/52-70 93-98 Exam: ENT: Normal Cardiovascular: Regular rate and rhythm. No murmur rub or gallop Lungs: Clear Extremities: Trace edema - Lab 09/05/16 05:43 09/05/16 05:43 Most recent lab results Calcium 7.9 MG/DL (8.5-10.1) L 09/05/16 05:43 Assessment and Plan (1) Chronic renal failure, stage 3 (moderate) Status: Acute Assessment and plan: 85-year-old woman admitted with: * Chronic renal failure, stage III. Baseline creatinine between 2 and 2.5 between April 2015 and the time of this admission. Renal function stable. Decrease IV rate * Urinary tract infection. Culture has grown Escherichia coli. Sensitivity to Zosyn is intermediate. It is very sensitive to cephalosporins and fluoroquinolones. Recommend changing to either of these. * Cholelithiasis * Chronic A. fib * Prosthetic aortic valve Current Visit: Yes (2) Chest pain Status: Acute Current Visit: Yes (3) Cholelithiasis Problem details: With gallbladder wall thickening and Peñaloza's sign on ultrasound suspecting possible evolving cholecystitis. However the patient is clinically doing okay today and tolerating by mouth intake. Status: Acute Current Visit: Yes Qualifiers: Cholelithiasis location: gallbladder Cholecystitis presence: with cholecystitis (4) Urinary tract infection Status: Acute Current Visit: No (5) A-fib Status: Chronic Current Visit: No Qualifiers: Atrial fibrillation type: chronic Qualified Code(s): I48.2 - Chronic atrial fibrillation (6) History of heart valve replacement Status: Chronic Current Visit: No
[2016-09-05 12:17] VITALS: BP 98/46
[2016-09-05] MEDS ORDERED: cefTRIAXone 1,000 MG in SODIUM CHLORIDE 0.9% 100 ML IV SCH (13:00)
--- NOTE | 2016-09-05 13:30 | Discharge Summary ---
Hospital Course - Hospital Course Hospital Course: Ms. Hobbs is an 85-year-old female who presented with abdominal pain. She does have a history of cholelithiasis and because of her comorbidities deemed not a good surgical candidate. Patient was found to have what initially was stone urinary tract infection she was empirically started on IV Zosyn. She also has chronic kidney disease and there appeared to be an increase in her renal creatinine on presentation. She was admitted to regular medicine floor where she was made nothing by mouth. She was started on empiric Zosyn with abdominal ultrasound there are revealed cholelithiasis with positive sonogram Peñaloza's sign consistent with possible acute cholecystitis. Nephrology was consulted and felt she had acute kidney injury for chronic kidney disease and recommended continue with IV hydration and avoid nephrotoxic medications. She also had a surgery consultation in which patient had been diagnosed in the past with cholelithiasis and opted for medical management. Patient has responded to the IV antibiotics as her abdominal pain is resolved her diet has been advanced which she is tolerating. Patient stated that she had a history of a hiatal hernia was having some difficulties with swallowing. We did did obtain a speech evaluation who stated that she was swallowing okay and recommended soft Diet. Her urine culture returned with 10-20,000 Escherichia coli which was pansensitive. She had been treated approximately 5 days with IV Zosyn was also treated the coli but given it was only 10-20,000 this is not consistent with acute urinary tract infection. This is been discussed with the patient her daughter at bedside she is now stable to be discharged home. Diagnosis - Discharge Diagnosis (1) Cholelithiases Status: Chronic (2) Acute on chronic renal failure Status: Acute (3) A-fib Status: Chronic (4) History of heart valve replacement Status: Chronic Specialty Discharge - Follow Up or Referrals Follow up with: Gustabo Garcia MD [Physician] - 04/24/17 2:00 pm Discharge Plan - Discharge Data Disposition: Disch To Home/Self Care Condition at Discharge: Stable Discharge Diet: other (soft mechanical diet with chopped meats) Activity: resume usual activities as tolerated Hygiene: no restrictions Contact your physician if you experience:: Nausea/Vomiting, Bleeding - Discharge Medications New Furosemide Tab [Lasix Tab] 40 mg PO DAILY #30 tablet Continue Allopurinol 1 tablet PO BID Clorazepate [Tranxene] 3.75 mg PO BID PRN PRN Reason: Anxiety Apixaban [Eliquis] 2.5 mg PO BID Multivitamin (Ocuvite) [Ocuvite] 1 tablet PO DAILY fentaNYL 25 MCG/HR PATCH [Duragesic 25 Patch] 1 patch INTRADERM Q12HR Spironolactone [Aldactone] 25 mg PO DAILY Potassium Chloride [Klor-Con M10] 1 tablet PO BID Ursodiol 300 mg PO BID Esomeprazole Magnesium [Nexium] 40 mg PO DAILY Discontinued Furosemide Tab [Lasix Tab] 40 mg PO BID Losartan Potassium 100 mg PO DAILY - Follow Up or Referral Follow Up: Gustabo Garcia MD [Physician] - 04/24/17 2:00 pm - Forms/Instructions Additional Discharge Instructions: hold lasix, losartan and spirolactone until seen by Dr. Garcia and repeat renal function. Exam - Constitutional Vitals: Period Temp Pulse Resp BP Sys/Lamas Pulse Ox Last 24 Hr 97.5 F-98.4 F 76-81 18-20 96-116/46-70 93-98 General appearance: no acute distress - Head Head exam: Present: normocephalic, atraumatic - Eye Eye exam: Present: EOMI Pupils: Present: WAYNE - ENT ENT exam: Present: normal exam - Respiratory Respiratory exam: Present: clear to auscultation bilaterally - Cardiovascular Cardiovascular exam: Present: irregular rhythm - GI/Abdominal GI/Abdominal exam: Present: normal bowel sounds, soft - Extremities Exam Extremities exam: Present: full ROM - Neurological Exam Neurological exam: Present: alert, oriented X3, CN II-XII intact - Psychiatric Psychiatric exam: Present: normal affect, normal mood - Skin Skin exam: Present: warm, intact Discharge Results Procedures and tests throughout hospitalization: Pending Orders 09/04/16 09:37 Occult Blood, Stool Routine 09/06/16 04:00 Basic Metabolic Panel IN AM CBC [Comp Blood Count Auto Diff] IN AM Labs on day of discharge: Labs from last 24 hours 09/05/16 09/05/16 05:43 05:43 WBC 10.4 RBC 2.58 L Hgb 8.6 L Hct 26.2 L MCV 101.6 MCH 33 MCHC 32.8 RDW 14.8 Plt Count 108 L MPV 12.1 H Neut % (Auto) 69.7 Lymph % (Auto) 17.4 L Morrow % (Auto) 7.1 Eos % (Auto) 4.9 Baso % (Auto) 0.5 Neut # (Auto) 7.2 Lymph # (Auto) 1.8 Morrow # (Auto) 0.7 Eos # (Auto) 0.5 Baso # (Auto) 0.1 Immature Gran % 0.4 Nucleated RBC % 0.0 Immature Gran # 0.04 Nucleated RBCs # 0.00 Sodium 147 H Potassium 4.3 Chloride 114 H Carbon Dioxide 21 Anion Gap 16.3 H BUN 43 H Creatinine 2.30 H GFR Calculation 19 BUN/Creatinine Ratio 18.00 Glucose 80 Calculated Osmolality 301.4 Calcium 7.9 L DS: Provider Date of admission: 09/02/16 10:44 Primary care physician: Yeison Linares MD Attending physician on admission: Gil Maharaj Consults: 09/02/16 12:27 Consult to Pharmacy [CONS] Routine Reason for Pharmacy Consult: Adjust Meds Renal Funct 09/03/16 14:33 Consult to Physician [CONS] Routine Comment: general surgery, Dr. Garcia Consulting Provider: Naldo Paul III. Person Notified: dr stearns Date Notified: 09/04/16 Time Notified: 07:26 09/03/16 16:37 Consult to Physician [CONS] Routine Comment: nephrology, Cr high & cortical loss on US Consulting Provider: Discharging clinician: Courtney Rae MD Expected date of discharge: 09/05/16
[2016-09-05] MEDS ORDERED: PIPERACILLIN/TAZOBACTAM 3,375 MG in SODIUM CHLORIDE 0.9% 100 ML IV SCH (21:00)
== END 2016-09-05 15:30 | disposition home health service (06) | DRG 872 ==
LOC: EDUNIT# → EDBD → N.ED 07:14 → N.EDINP 10:44 → SUATTDRO 10:44 → N.EDINP 12:09 → N.2E 12:52
PROVIDERS: ADMIT Student in an Organized Health Care Education/Training Program; ATTEND Family Medicine

== ENCOUNTER 2017-07-06 12:41 | Inpatient (IN) ==
[2017-07-06 13:27] LABS: Basophils % 0.5 % (0.0-0.8); Eosinophils # 0.1 10*3/uL (0.0-0.87); Hematocrit 32.6 VOL% (35.7-47.0); Hemoglobin 10.6 GM/DL (12.0-16.0); Immature Granulocytes % 0.6 %; Immature Granulocytes Absolute 0.05 #; Lymphocytes # 0.8 10*3/uL (1.4-4.0); Lymphocytes % 8.6 % (21.3-54.2); Mean Corpuscular HGB Conc 32.5 GM/DL (32-36); Mean Corpuscular Hemoglobin 32 PG (27-34); Mean Corpuscular Volume 99.4 FL (87-102); Mean Platelet Volume 11.9 FL (9.6-12.0); Monocytes # 0.5 10*3/uL (0.11-0.8); Monocytes % 5.6 % (1.7-12.7); Neutrophils # 7.3 10*3/uL (1.4-7.4); Neutrophils % 83.7 % (38.7-73.9); Platelet Count 132 T/CUMM (130-400); Red Blood Count 3.28 MC/CUMM (3.8-5.5); Red Cell Distribution Width 14.8 % (9.3-17.3); White Blood Count 8.7 T/CUMM (4-12)
[2017-07-06] MEDS ORDERED: ONDANSETRON 4 MG/2 ML VIAL ONE (13:34)
[2017-07-06] MEDS ORDERED: HYDROmorphone 2 MG/1 ML VIAL ONE (13:34)
[2017-07-06] MEDS ORDERED: HYDROmorphone 2 MG/1 ML VIAL IV STA (13:35)
[2017-07-06] MEDS ORDERED: ONDANSETRON 4 MG/2 ML VIAL IV STA (13:35)
[2017-07-06 13:46] LABS: Albumin 3.5 G/DL (3.4-5.0); Bilirubin,Total 0.8 MG/DL (0.2-1.0); Calcium 8.4 MG/DL (8.5-10.1); Osmolality,Calculated 293.1 MOS/KG (273-304); Potassium 3.8 MMOL/L (3.5-5.1); Total Protein 6.3 G/DL (6.4-8.3)
[2017-07-06 13:52] LABS: Apearance,Urine Slightly Hazy (Clear); Bacteria,Urine Occasional /HPF (Few); Bilirubin,Urine Negative (Negative); Blood, Urine Negative (Negative); Glucose,Urine (UA) Negative (Negative); Hyaline Casts,Urine 2 /LPF (0-3); Ketones,Urine Negative (Negative); Mucus,Urine Occasional /LPF (Occasional); Nitrite,Urine Negative (Negative); Protein,Urine Negative; RBC,Urine 4 /HPF (0-4); Squamous Epithelial Cell,Urine Occasional /HPF (0-10); Urine Color Yellow (Yellow); Urine Specific Gravity 1.009 (1.001-1.035); Urine Urobilinogen < 2.0 EU/DL (0.2-1.0); WBC,Urine 63 /HPF (0-6)
[2017-07-06] MEDS ORDERED: cefTRIAXone 1,000 MG VIAL ONE (16:14)
[2017-07-06] MEDS ORDERED: ALUM/MAG/SIMETH/LIDO VISC 1:1 30 ML BOTTLE PO ONE (16:14)
[2017-07-06] MEDS: cefTRIAXone 1,000 MG in SYRINGE 1 EACH IV SCH (16:19)
[2017-07-06] MEDS ORDERED: ALUM/MAG/SIMETH/LIDO VISC 1:1 30 ML BOTTLE PO STA (16:33)
[2017-07-06] MEDS: FUROSEMIDE 20 MG TABLET PO SCH (21:58)
[2017-07-06] MEDS: POTASSIUM CHLORIDE 10 MEQ TABLET PO SCH (21:59)
[2017-07-06] MEDS: ALLOPURINOL 100 MG TABLET PO SCH (21:59)
[2017-07-06] MEDS: MORPHINE 2 MG/1 ML SYRINGE IV PRN (22:14)
[2017-07-07] MEDS: CLORAZEPATE 3.75 MG TABLET PO PRN ×2 (00:09→10:41)
[2017-07-07] MEDS ORDERED: HYDROmorphone 2 MG/1 ML VIAL IV ONE (00:40)
[2017-07-07] MEDS: clonazePAM 0.5 MG TABLET PO PRN (03:08)
[2017-07-07 06:53] LABS: Basophils # 0.1 10*3/uL (0.0-0.2); Basophils % 0.5 % (0.0-0.8); Eosinophils # 0.1 10*3/uL (0.0-0.87); Hematocrit 23.5 VOL% (35.7-47.0); Hemoglobin 7.8 GM/DL (12.0-16.0); Immature Granulocytes % 0.6 %; Immature Granulocytes Absolute 0.07 #; Lymphocytes # 0.9 10*3/uL (1.4-4.0); Lymphocytes % 7.7 % (21.3-54.2); Mean Corpuscular HGB Conc 33.2 GM/DL (32-36); Mean Corpuscular Hemoglobin 33 PG (27-34); Mean Corpuscular Volume 99.6 FL (87-102); Mean Platelet Volume 12.6 FL (9.6-12.0); Monocytes # 1.1 10*3/uL (0.11-0.8); Monocytes % 8.7 % (1.7-12.7); Neutrophils % 81.5 % (38.7-73.9); Platelet Count 128 T/CUMM (130-400); Red Blood Count 2.36 MC/CUMM (3.8-5.5); Red Cell Distribution Width 14.7 % (9.3-17.3); White Blood Count 12.2 T/CUMM (4-12)
[2017-07-07 06:58] LABS: PT Patient Result 10.7 SECS
[2017-07-07 07:15] LABS: Calcium 8.2 MG/DL (8.5-10.1); Osmolality,Calculated 290.4 MOS/KG (273-304); Potassium 4.8 MMOL/L (3.5-5.1)
[2017-07-07] MEDS: PANTOPRAZOLE 40 MG TABLET PO SCH ×2 (08:58→19:59)
[2017-07-07] MEDS: MULTIVITAMIN (OCUVITE) TABLET PO SCH (08:58)
[2017-07-07] MEDS: ONDANSETRON 4 MG TABLET PO PRN (08:59)
[2017-07-07] MEDS: MULTIVITAMIN (CENTRUM) TABLET PO SCH (08:59)
[2017-07-07] MEDS: ALLOPURINOL 100 MG TABLET PO SCH ×2 (08:59→19:59)
[2017-07-07] MEDS: POTASSIUM CHLORIDE 10 MEQ TABLET PO SCH ×2 (08:59→19:59)
[2017-07-07] MEDS: SPIRONOLACTONE 25 MG TABLET PO SCH (08:59)
[2017-07-07] MEDS ORDERED: FUROSEMIDE 20 MG TABLET PO SCH (09:00)
[2017-07-07] MEDS: DILTIAZEM CD 120 MG CAPSULE PO SCH (09:00)
[2017-07-07] MEDS: MORPHINE 2 MG/1 ML SYRINGE IV PRN ×4 (09:00→20:14)
[2017-07-07] MEDS ORDERED: SODIUM CHLORIDE 0.9% 1,000 ML IV PRN (09:06)
[2017-07-07] MEDS: ONDANSETRON 4 MG/2 ML VIAL IV PRN (12:09)
[2017-07-07] MEDS: FUROSEMIDE 20 MG TABLET PO SCH (16:23)
[2017-07-07] MEDS ORDERED: FUROSEMIDE 40 MG/5 ML UDCUP PO SCH (19:00)
[2017-07-07] MEDS: cefTRIAXone 1,000 MG in SYRINGE 1 EACH IV SCH (20:01)
[2017-07-07 21:22] LABS: Hematocrit 28.2 VOL% (35.7-47.0)
[2017-07-07 21:24] LABS: Hemoglobin 9.7 GM/DL (12.0-16.0)
[2017-07-08] MEDS: MORPHINE 2 MG/1 ML SYRINGE IV PRN ×2 (01:42→06:03)
[2017-07-08 02:49] LABS: Basophils % 0.3 % (0.0-0.8); Eosinophils # 0.1 10*3/uL (0.0-0.87); Eosinophils % 1.2 % (0.00-10.9); Hematocrit 27.4 VOL% (35.7-47.0); Hemoglobin 9.2 GM/DL (12.0-16.0); Immature Granulocytes % 0.5 %; Immature Granulocytes Absolute 0.06 #; Lymphocytes # 1.1 10*3/uL (1.4-4.0); Lymphocytes % 10.2 % (21.3-54.2); Mean Corpuscular HGB Conc 33.6 GM/DL (32-36); Mean Corpuscular Hemoglobin 31 PG (27-34); Mean Corpuscular Volume 91.6 FL (87-102); Mean Platelet Volume 12.7 FL (9.6-12.0); Monocytes # 1.1 10*3/uL (0.11-0.8); Monocytes % 10.2 % (1.7-12.7); Neutrophils # 8.6 10*3/uL (1.4-7.4); Neutrophils % 77.6 % (38.7-73.9); Platelet Count 87 T/CUMM (130-400); Red Blood Count 2.99 MC/CUMM (3.8-5.5); Red Cell Distribution Width 16.9 % (9.3-17.3); White Blood Count 11.1 T/CUMM (4-12)
[2017-07-08 03:03] LABS: Calcium 7.7 MG/DL (8.5-10.1); Osmolality,Calculated 289.5 MOS/KG (273-304)
[2017-07-08 04:49] LABS: Eosinophils 3 % (0-10); Lymphocytes 7 % (20-55); Myelocytes 1 %; Segmented Neutrophils 86 % (50-85); Total Cells Counted 100
[2017-07-08 04:50] LABS: Anisocytosis 1+; Platelet Estimate Decreased
[2017-07-08] MEDS ORDERED: LIDOCAINE 2% 5 ML VIAL ONE (09:10)
[2017-07-08] MEDS ORDERED: KETOROLAC 30 MG/1 ML VIAL ONE ×2 (09:10→12:01)
[2017-07-08] MEDS ORDERED: PROPOFOL 200 MG/20 ML VIAL IV ONE ×2 (09:10→11:59)
[2017-07-08] MEDS ORDERED: DEXAMETHASONE 10 MG/1 ML VIAL ONE ×2 (09:10→12:01)
[2017-07-08] MEDS ORDERED: ETOMIDATE 20 MG/10 ML VIAL IV ONE (09:10)
[2017-07-08] MEDS ORDERED: ONDANSETRON 4 MG/2 ML VIAL ONE ×2 (09:10→12:01)
[2017-07-08] MEDS ORDERED: ceFAZolin 1,000 MG VIAL ONE (10:24)
[2017-07-08] MEDS ORDERED: fentaNYL 100 MCG/2 ML VIAL ONE ×2 (12:00)
[2017-07-08] MEDS ORDERED: MIDAZOLAM 2 MG/2 ML VIAL ONE (12:00)
[2017-07-08] MEDS ORDERED: KETAMINE 500 MG/10 ML VIAL ONE (12:01)
[2017-07-08] MEDS ORDERED: SODIUM CHLORIDE 0.9% 100 ML IV ONE (12:02)
[2017-07-08] MEDS: DILTIAZEM CD 120 MG CAPSULE PO SCH (13:12)
[2017-07-08] MEDS: SPIRONOLACTONE 25 MG TABLET PO SCH (13:12)
[2017-07-08] MEDS: MULTIVITAMIN (CENTRUM) TABLET PO SCH (13:13)
[2017-07-08] MEDS: FUROSEMIDE 20 MG TABLET PO SCH ×3 (13:13→21:20)
[2017-07-08] MEDS: MULTIVITAMIN (OCUVITE) TABLET PO SCH (13:13)
[2017-07-08] MEDS: POTASSIUM CHLORIDE 10 MEQ TABLET PO SCH ×2 (13:13→21:14)
[2017-07-08] MEDS: PANTOPRAZOLE 40 MG TABLET PO SCH ×2 (13:13→21:16)
[2017-07-08] MEDS: ALLOPURINOL 100 MG TABLET PO SCH ×2 (13:13→21:14)
[2017-07-08] MEDS: cefTRIAXone 1,000 MG in SYRINGE 1 EACH IV SCH (15:59)
[2017-07-08] MEDS: ONDANSETRON 4 MG/2 ML VIAL IV PRN (18:46)
[2017-07-08] MEDS: CLORAZEPATE 3.75 MG TABLET PO PRN (21:13)
[2017-07-08] MEDS: NITROFURANTOIN MACRO/MONO 100 MG CAPSULE PO SCH (21:14)
[2017-07-08] MEDS: APIXABAN 2.5 MG TABLET PO SCH (21:15)
[2017-07-09] MEDS: MORPHINE 2 MG/1 ML SYRINGE IV PRN ×2 (07:39→17:31)
[2017-07-09] MEDS: FUROSEMIDE 20 MG TABLET PO SCH ×2 (10:01→16:05)
[2017-07-09] MEDS: MULTIVITAMIN (CENTRUM) TABLET PO SCH (10:02)
[2017-07-09] MEDS: DILTIAZEM CD 120 MG CAPSULE PO SCH (10:02)
[2017-07-09] MEDS: SPIRONOLACTONE 25 MG TABLET PO SCH (10:02)
[2017-07-09] MEDS: POTASSIUM CHLORIDE 10 MEQ TABLET PO SCH ×2 (10:03→21:03)
[2017-07-09] MEDS: APIXABAN 2.5 MG TABLET PO SCH ×2 (10:03→21:25)
[2017-07-09] MEDS: NITROFURANTOIN MACRO/MONO 100 MG CAPSULE PO SCH ×2 (10:03→21:03)
[2017-07-09] MEDS: MULTIVITAMIN (OCUVITE) TABLET PO SCH (10:04)
[2017-07-09] MEDS: ALLOPURINOL 100 MG TABLET PO SCH ×2 (10:04→21:04)
[2017-07-09] MEDS: PANTOPRAZOLE 40 MG TABLET PO SCH ×2 (10:04→21:03)
[2017-07-09] MEDS: CLORAZEPATE 3.75 MG TABLET PO PRN (10:25)
[2017-07-09 14:18] LABS: Hematocrit 21.7 VOL% (35.7-47.0)
[2017-07-09] MEDS ORDERED: SODIUM CHLORIDE 0.9% 1,000 ML IV PRN (15:43)
[2017-07-09] MEDS: CLORAZEPATE 3.75 MG TABLET PO SCH (21:03)
[2017-07-09] MEDS: DESITIN 4OZ/NYSTATIN 15 GRAM MIXTURE PASTE TOP SCH (21:04)
[2017-07-10] MEDS: MORPHINE 2 MG/1 ML SYRINGE IV PRN ×3 (02:22→21:03)
[2017-07-10 06:31] LABS: Basophils % 0.1 % (0.0-0.8); Hematocrit 27.6 VOL% (35.7-47.0); Immature Granulocytes % 1.4 %; Immature Granulocytes Absolute 0.21 #; Lymphocytes # 0.9 10*3/uL (1.4-4.0); Lymphocytes % 6.2 % (21.3-54.2); Mean Corpuscular HGB Conc 34.4 GM/DL (32-36); Mean Corpuscular Hemoglobin 31 PG (27-34); Mean Corpuscular Volume 88.7 FL (87-102); Mean Platelet Volume 12.3 FL (9.6-12.0); Monocytes # 1.3 10*3/uL (0.11-0.8); Monocytes % 8.4 % (1.7-12.7); NRBC # 0.04 10*3/uL; Neutrophils # 12.6 10*3/uL (1.4-7.4); Neutrophils % 83.9 % (38.7-73.9); Red Blood Count 3.11 MC/CUMM (3.8-5.5); Red Cell Distribution Width 16.3 % (9.3-17.3)
[2017-07-10 06:50] LABS: Osmolality,Calculated 295.8 MOS/KG (273-304); Potassium 5.2 MMOL/L (3.5-5.1)
[2017-07-10 06:53] LABS: Hemoglobin 9.5 GM/DL (12.0-16.0); Platelet Count 106 T/CUMM (130-400); White Blood Count 15.1 T/CUMM (4-12)
[2017-07-10] MEDS: APIXABAN 2.5 MG TABLET PO SCH ×2 (09:47→21:00)
[2017-07-10] MEDS: MULTIVITAMIN (CENTRUM) TABLET PO SCH (09:47)
[2017-07-10] MEDS: DILTIAZEM CD 120 MG CAPSULE PO SCH (09:47)
[2017-07-10] MEDS: PANTOPRAZOLE 40 MG TABLET PO SCH ×2 (09:48→21:00)
[2017-07-10] MEDS: NITROFURANTOIN MACRO/MONO 100 MG CAPSULE PO SCH (09:48)
[2017-07-10] MEDS: MULTIVITAMIN (OCUVITE) TABLET PO SCH (09:48)
[2017-07-10] MEDS: ALLOPURINOL 100 MG TABLET PO SCH ×2 (09:49→21:00)
[2017-07-10] MEDS: CLORAZEPATE 3.75 MG TABLET PO SCH ×3 (09:49→21:01)
[2017-07-10] MEDS: FUROSEMIDE 20 MG TABLET PO SCH (09:52)
[2017-07-10] MEDS: DESITIN 4OZ/NYSTATIN 15 GRAM MIXTURE PASTE TOP SCH ×2 (12:50→21:11)
[2017-07-10] MEDS: POTASSIUM CHLORIDE 10 MEQ TABLET PO SCH (20:25)
[2017-07-10] MEDS: LINEZOLID 600 MG TABLET PO SCH (21:00)
[2017-07-11] MEDS: MORPHINE 2 MG/1 ML SYRINGE IV PRN (01:05)
[2017-07-11 06:35] LABS: Basophils % 0.1 % (0.0-0.8); Eosinophils # 0.1 10*3/uL (0.0-0.87); Eosinophils % 0.8 % (0.00-10.9); Hemoglobin 8.6 GM/DL (12.0-16.0); Immature Granulocytes % 1.1 %; Immature Granulocytes Absolute 0.14 #; Lymphocytes # 1.1 10*3/uL (1.4-4.0); Lymphocytes % 8.7 % (21.3-54.2); Mean Corpuscular HGB Conc 34.4 GM/DL (32-36); Mean Corpuscular Hemoglobin 31 PG (27-34); Mean Corpuscular Volume 90.6 FL (87-102); Mean Platelet Volume 11.8 FL (9.6-12.0); Monocytes # 1.2 10*3/uL (0.11-0.8); Monocytes % 9.6 % (1.7-12.7); NRBC # 0.04 10*3/uL; Neutrophils % 79.7 % (38.7-73.9); Platelet Count 101 T/CUMM (130-400); Red Blood Count 2.76 MC/CUMM (3.8-5.5); White Blood Count 12.5 T/CUMM (4-12)
[2017-07-11 07:18] LABS: Calcium 7.3 MG/DL (8.5-10.1); Magnesium 2.2 MG/DL (1.8-2.4); Osmolality,Calculated 295.7 MOS/KG (273-304); Potassium 4.3 MMOL/L (3.5-5.1)
[2017-07-11] MEDS: MULTIVITAMIN (CENTRUM) TABLET PO SCH (08:24)
[2017-07-11] MEDS: CLORAZEPATE 3.75 MG TABLET PO SCH ×2 (08:24→20:33)
[2017-07-11] MEDS: MULTIVITAMIN (OCUVITE) TABLET PO SCH (08:24)
[2017-07-11] MEDS: LINEZOLID 600 MG TABLET PO SCH ×2 (08:24→20:33)
[2017-07-11] MEDS: PANTOPRAZOLE 40 MG TABLET PO SCH ×2 (08:24→20:33)
[2017-07-11] MEDS: DESITIN 4OZ/NYSTATIN 15 GRAM MIXTURE PASTE TOP SCH ×2 (08:24→23:09)
[2017-07-11] MEDS: APIXABAN 2.5 MG TABLET PO SCH ×2 (08:24→20:33)
[2017-07-11] MEDS: DILTIAZEM CD 120 MG CAPSULE PO SCH (08:24)
[2017-07-11] MEDS: ALLOPURINOL 100 MG TABLET PO SCH ×2 (08:24→20:33)
[2017-07-11] MEDS: ACETAMINOPHEN 325 MG TABLET PO PRN ×2 (12:50→18:36)
[2017-07-11] MEDS: oxyCODONE IR 5 MG TABLET PO PRN (20:34)
[2017-07-12] MEDS: oxyCODONE IR 5 MG TABLET PO PRN ×2 (00:16→04:19)
[2017-07-12] MEDS: clonazePAM 0.5 MG TABLET PO PRN ×2 (00:18→17:39)
[2017-07-12] MEDS ORDERED: MORPHINE 2 MG/1 ML SYRINGE IM PRN ×2 (01:18→02:00)
[2017-07-12 06:39] LABS: Basophils % 0.2 % (0.0-0.8); Eosinophils # 0.3 10*3/uL (0.0-0.87); Eosinophils % 2.3 % (0.00-10.9); Hematocrit 23.6 VOL% (35.7-47.0); Hemoglobin 7.9 GM/DL (12.0-16.0); Immature Granulocytes % 1.2 %; Immature Granulocytes Absolute 0.14 #; Lymphocytes # 1.3 10*3/uL (1.4-4.0); Lymphocytes % 10.8 % (21.3-54.2); Mean Corpuscular HGB Conc 33.5 GM/DL (32-36); Mean Corpuscular Hemoglobin 30 PG (27-34); Mean Corpuscular Volume 90.8 FL (87-102); Mean Platelet Volume 11.2 FL (9.6-12.0); Monocytes # 1.1 10*3/uL (0.11-0.8); Monocytes % 9.3 % (1.7-12.7); NRBC # 0.03 10*3/uL; Neutrophils # 8.8 10*3/uL (1.4-7.4); Neutrophils % 76.2 % (38.7-73.9); Platelet Count 120 T/CUMM (130-400); Red Cell Distribution Width 17.1 % (9.3-17.3); White Blood Count 11.6 T/CUMM (4-12)
[2017-07-12 07:08] LABS: Calcium 7.7 MG/DL (8.5-10.1); Osmolality,Calculated 292.7 MOS/KG (273-304); Potassium 3.5 MMOL/L (3.5-5.1)
[2017-07-12] MEDS ORDERED: SODIUM CHLORIDE 0.9% 1,000 ML IV PRN (08:09)
[2017-07-12] MEDS: DESITIN 4OZ/NYSTATIN 15 GRAM MIXTURE PASTE TOP SCH ×2 (09:16→20:36)
[2017-07-12] MEDS: PANTOPRAZOLE 40 MG TABLET PO SCH ×2 (09:16→20:35)
[2017-07-12] MEDS: MULTIVITAMIN (CENTRUM) TABLET PO SCH (09:16)
[2017-07-12] MEDS: CLORAZEPATE 3.75 MG TABLET PO SCH ×2 (09:16→20:35)
[2017-07-12] MEDS: ALLOPURINOL 100 MG TABLET PO SCH ×2 (09:16→20:35)
[2017-07-12] MEDS: APIXABAN 2.5 MG TABLET PO SCH ×2 (09:16→20:35)
[2017-07-12] MEDS: MULTIVITAMIN (OCUVITE) TABLET PO SCH (09:16)
[2017-07-12] MEDS: DILTIAZEM CD 120 MG CAPSULE PO SCH (09:16)
[2017-07-12] MEDS: LINEZOLID 600 MG TABLET PO SCH ×2 (09:18→20:35)
[2017-07-12] MEDS ORDERED: fentaNYL 25 MCG/HR PATCH TRANSDERM SCH (12:00)
[2017-07-12] MEDS: ONDANSETRON 4 MG TABLET PO PRN (12:07)
[2017-07-12] MEDS: MORPHINE 2 MG/1 ML SYRINGE IV PRN ×2 (12:08→20:38)
[2017-07-12] MEDS: ONDANSETRON 4 MG/2 ML VIAL IV PRN ×2 (17:44→21:22)
[2017-07-13] MEDS: MORPHINE 2 MG/1 ML SYRINGE IV PRN ×4 (00:52→21:34)
[2017-07-13 05:17] LABS: Basophils % 0.3 % (0.0-0.8); Eosinophils # 0.1 10*3/uL (0.0-0.87); Hematocrit 28.8 VOL% (35.7-47.0); Immature Granulocytes % 0.8 %; Immature Granulocytes Absolute 0.09 #; Lymphocytes # 0.9 10*3/uL (1.4-4.0); Lymphocytes % 7.4 % (21.3-54.2); Mean Corpuscular HGB Conc 35.1 GM/DL (32-36); Mean Corpuscular Hemoglobin 30 PG (27-34); Mean Corpuscular Volume 86.7 FL (87-102); Monocytes # 1.1 10*3/uL (0.11-0.8); Monocytes % 9.5 % (1.7-12.7); NRBC # 0.03 10*3/uL; Neutrophils # 9.3 10*3/uL (1.4-7.4); Platelet Count 111 T/CUMM (130-400); Red Cell Distribution Width 17.6 % (9.3-17.3); White Blood Count 11.5 T/CUMM (4-12)
[2017-07-13 05:33] LABS: Red Blood Count 3.32 MC/CUMM (3.8-5.5)
[2017-07-13 05:34] LABS: Hemoglobin 10.1 GM/DL (12.0-16.0)
[2017-07-13 05:46] LABS: Calcium 7.5 MG/DL (8.5-10.1); Osmolality,Calculated 291.5 MOS/KG (273-304); Potassium 3.3 MMOL/L (3.5-5.1)
[2017-07-13] MEDS: DESITIN 4OZ/NYSTATIN 15 GRAM MIXTURE PASTE TOP SCH ×2 (08:15→21:26)
[2017-07-13] MEDS: ALLOPURINOL 100 MG TABLET PO SCH ×2 (09:48→21:25)
[2017-07-13] MEDS: PANTOPRAZOLE 40 MG TABLET PO SCH ×2 (09:48→21:26)
[2017-07-13] MEDS: CLORAZEPATE 3.75 MG TABLET PO SCH ×2 (09:48→21:26)
[2017-07-13] MEDS: MULTIVITAMIN (OCUVITE) TABLET PO SCH (09:48)
[2017-07-13] MEDS: DILTIAZEM CD 120 MG CAPSULE PO SCH (09:48)
[2017-07-13] MEDS: APIXABAN 2.5 MG TABLET PO SCH ×2 (09:48→21:25)
[2017-07-13] MEDS: MULTIVITAMIN (CENTRUM) TABLET PO SCH (09:48)
[2017-07-13] MEDS: LINEZOLID 600 MG TABLET PO SCH ×2 (09:49→21:26)
[2017-07-13] MEDS: ONDANSETRON 4 MG/2 ML VIAL IV PRN (10:21)
[2017-07-13] MEDS: MEGESTROL 40 MG TABLET PO SCH ×2 (15:15→21:25)
[2017-07-14] MEDS: MORPHINE 2 MG/1 ML SYRINGE IV PRN ×3 (03:55→20:37)
[2017-07-14 05:52] LABS: Basophils % 0.2 % (0.0-0.8); Eosinophils # 0.2 10*3/uL (0.0-0.87); Eosinophils % 1.8 % (0.00-10.9); Hematocrit 28.3 VOL% (35.7-47.0); Hemoglobin 9.7 GM/DL (12.0-16.0); Immature Granulocytes % 1.1 %; Immature Granulocytes Absolute 0.11 #; Lymphocytes # 0.7 10*3/uL (1.4-4.0); Lymphocytes % 6.7 % (21.3-54.2); Mean Corpuscular HGB Conc 34.3 GM/DL (32-36); Mean Corpuscular Hemoglobin 30 PG (27-34); Mean Corpuscular Volume 87.3 FL (87-102); Mean Platelet Volume 11.6 FL (9.6-12.0); Monocytes # 0.9 10*3/uL (0.11-0.8); NRBC # 0.02 10*3/uL; Neutrophils # 8.5 10*3/uL (1.4-7.4); Neutrophils % 81.2 % (38.7-73.9); Platelet Count 132 T/CUMM (130-400); Red Blood Count 3.24 MC/CUMM (3.8-5.5); Red Cell Distribution Width 17.5 % (9.3-17.3); White Blood Count 10.4 T/CUMM (4-12)
[2017-07-14 06:27] LABS: Calcium 7.7 MG/DL (8.5-10.1); Osmolality,Calculated 289.5 MOS/KG (273-304)
[2017-07-14] MEDS: clonazePAM 0.5 MG TABLET PO PRN (06:28)
[2017-07-14] MEDS: DILTIAZEM CD 120 MG CAPSULE PO SCH (09:42)
[2017-07-14] MEDS: CLORAZEPATE 3.75 MG TABLET PO SCH ×2 (09:43→20:37)
[2017-07-14] MEDS: PANTOPRAZOLE 40 MG TABLET PO SCH ×2 (09:43→20:37)
[2017-07-14] MEDS: MULTIVITAMIN (CENTRUM) TABLET PO SCH (09:43)
[2017-07-14] MEDS: APIXABAN 2.5 MG TABLET PO SCH ×2 (09:43→20:37)
[2017-07-14] MEDS: MULTIVITAMIN (OCUVITE) TABLET PO SCH (09:43)
[2017-07-14] MEDS: MEGESTROL 40 MG TABLET PO SCH ×3 (09:43→20:37)
[2017-07-14] MEDS: LINEZOLID 600 MG TABLET PO SCH (09:44)
[2017-07-14] MEDS: ALLOPURINOL 100 MG TABLET PO SCH ×2 (09:44→20:37)
[2017-07-14] MEDS ORDERED: fentaNYL 25 MCG/HR PATCH TRANSDERM SCH (10:00)
[2017-07-14] MEDS: ONDANSETRON 4 MG/2 ML VIAL IV PRN ×2 (12:03→23:10)
[2017-07-14] MEDS ORDERED: clonazePAM 0.5 MG TABLET PO PRN (14:44)
[2017-07-14] MEDS: DESITIN 4OZ/NYSTATIN 15 GRAM MIXTURE PASTE TOP SCH ×2 (16:20→20:37)
[2017-07-15] MEDS: MORPHINE 2 MG/1 ML SYRINGE IV PRN ×3 (02:46→13:40)
[2017-07-15 03:36] LABS: Amorphous Crystals,Urine Occasional /HPF (Few); Apearance,Urine CLEAR (Clear); Bilirubin,Urine Negative (Negative); Blood, Urine Negative (Negative); Glucose,Urine (UA) Negative (Negative); Ketones,Urine Negative (Negative); Mucus,Urine Occasional /LPF (Occasional); Nitrite,Urine Negative (Negative); Protein,Urine Negative; RBC,Urine <1 /HPF (0-4); Urine Color Yellow (Yellow); Urine Specific Gravity 1.009 (1.001-1.035); Urine Urobilinogen < 2.0 EU/DL (0.2-1.0); WBC,Urine 1 /HPF (0-6)
[2017-07-15 05:48] LABS: Calcium 7.8 MG/DL (8.5-10.1); Osmolality,Calculated 292.3 MOS/KG (273-304); Potassium 3.5 MMOL/L (3.5-5.1)
[2017-07-15 07:44] LABS: Basophils % 0.3 % (0.0-0.8); Eosinophils # 0.2 10*3/uL (0.0-0.87); Eosinophils % 2.9 % (0.00-10.9); Hematocrit 27.9 VOL% (35.7-47.0); Hemoglobin 9.6 GM/DL (12.0-16.0); Immature Granulocytes % 1.5 %; Immature Granulocytes Absolute 0.11 #; Lymphocytes # 0.8 10*3/uL (1.4-4.0); Lymphocytes % 10.4 % (21.3-54.2); Mean Corpuscular HGB Conc 34.4 GM/DL (32-36); Mean Corpuscular Hemoglobin 31 PG (27-34); Mean Corpuscular Volume 88.6 FL (87-102); Mean Platelet Volume 11.1 FL (9.6-12.0); Monocytes # 0.9 10*3/uL (0.11-0.8); Monocytes % 12.4 % (1.7-12.7); Neutrophils # 5.4 10*3/uL (1.4-7.4); Neutrophils % 72.5 % (38.7-73.9); Platelet Count 125 T/CUMM (130-400); Red Blood Count 3.15 MC/CUMM (3.8-5.5); Red Cell Distribution Width 18.1 % (9.3-17.3); White Blood Count 7.5 T/CUMM (4-12)
[2017-07-15] MEDS: DILTIAZEM CD 120 MG CAPSULE PO SCH (09:14)
[2017-07-15] MEDS: MULTIVITAMIN (OCUVITE) TABLET PO SCH (09:15)
[2017-07-15] MEDS: MEGESTROL 40 MG TABLET PO SCH (09:15)
[2017-07-15] MEDS: CLORAZEPATE 3.75 MG TABLET PO SCH (09:15)
[2017-07-15] MEDS: ALLOPURINOL 100 MG TABLET PO SCH (09:15)
[2017-07-15] MEDS: MULTIVITAMIN (CENTRUM) TABLET PO SCH (09:15)
[2017-07-15] MEDS: APIXABAN 2.5 MG TABLET PO SCH (09:15)
[2017-07-15] MEDS: PANTOPRAZOLE 40 MG TABLET PO SCH (09:15)
[2017-07-15 12:52] VITALS: BP 120/58
[2017-07-15] MEDS: DESITIN 4OZ/NYSTATIN 15 GRAM MIXTURE PASTE TOP SCH (13:48)
== END 2017-07-15 15:00 | DRG 481 ==
LOC: EDUNIT# → EDBD → N.ED 12:41 → SUATTDRO 14:22 → N.EDINP 14:22 → N.3E 16:50
PROVIDERS: ADMIT Internal Medicine; ATTEND Hospitalist

== ENCOUNTER 2018-03-04 15:51 | Inpatient (IN) ==
[2018-03-04] MEDS ORDERED: METOPROLOL TARTRATE 5 MG/5 ML VIAL IV STA (16:19)
[2018-03-04 16:53] LABS: Basophils % 0.7 % (0.0-0.8); Eosinophils # 0.1 10*3/uL (0.0-0.87); Eosinophils % 2.2 % (0.00-10.9); Hematocrit 39.8 VOL% (35.7-47.0); Hemoglobin 13.2 GM/DL (12.0-16.0); Immature Granulocytes % 0.3 %; Immature Granulocytes Absolute 0.02 #; Lymphocytes # 1.5 10*3/uL (1.4-4.0); Mean Corpuscular HGB Conc 33.2 GM/DL (32-36); Mean Corpuscular Hemoglobin 32 PG (27-34); Mean Corpuscular Volume 97.8 FL (87-102); Mean Platelet Volume 11.6 FL (9.6-12.0); Monocytes # 0.6 10*3/uL (0.11-0.8); Monocytes % 9.5 % (1.7-12.7); Neutrophils # 3.7 10*3/uL (1.4-7.4); Neutrophils % 62.3 % (38.7-73.9); Platelet Count 108 T/CUMM (130-400); Red Blood Count 4.07 MC/CUMM (3.8-5.5); Red Cell Distribution Width 13.8 % (9.3-17.3); White Blood Count 5.9 T/CUMM (4-12)
[2018-03-04 17:11] LABS: Alanine Aminotransferase 17 U/L (13-56); Albumin 3.1 G/DL (3.4-5.0); Alkaline Phosphatase 139 U/L (45-117); Aspartate Amino Transferase 21 U/L (0-37); Blood Urea Nitrogen 36 MG/DL (7-18); Calcium 8.5 MG/DL (8.5-10.1); Glucose 134 MG/DL (74-106); Osmolality,Calculated 290.3 MOS/KG (273-304); Potassium 3.8 MMOL/L (3.5-5.1); Sodium 141 MMOL/L (136-145); Total Protein 6.6 G/DL (6.4-8.3)
[2018-03-04 17:16] LABS: PT Patient Result 10.2 SECS; Partial Thromboplastin Time 28.2 SECS (0-40)
[2018-03-04] MEDS ORDERED: ASPIRIN 325 MG TABLET PO STA (17:35)
[2018-03-04 18:37] LABS: Apearance,Urine CLEAR (Clear); Bacteria,Urine Occasional /HPF (Few); Bilirubin,Urine Negative (Negative); Blood, Urine Negative (Negative); Glucose,Urine (UA) Negative (Negative); Ketones,Urine Negative (Negative); Nitrite,Urine Negative (Negative); Protein,Urine Negative; RBC,Urine <1 /HPF (0-4); Urine Color Straw (Yellow); Urine Specific Gravity 1.004 (1.001-1.035); Urine Urobilinogen < 2.0 EU/DL (0.2-1.0); WBC,Urine 1 /HPF (0-6)
[2018-03-04] MEDS ORDERED: ONDANSETRON 4 MG/2 ML VIAL IV PRN (18:38)
[2018-03-04] MEDS ORDERED: ACETAMINOPHEN 325 MG TABLET PO PRN (18:38)
[2018-03-04] MEDS ORDERED: DEXTROSE 50% 25 GM/50 ML VIAL IV PRN (18:38)
[2018-03-04] MEDS ORDERED: GLUCAGON 1 MG VIAL IM PRN (18:38)
[2018-03-04 18:45] LABS: Barbiturates Screen,Urine Negative (Negative); Benzodiazepines Screen,Urine Positive (Negative); Cannabinoid Screen,Urine Negative (Negative); Opiate Screen,Urine Positive (Negative); Phencyclidine Screen,Urine Negative (Negative)
[2018-03-04] MEDS ORDERED: LABETALOL 20 MG/4 ML SYRINGE IV PRN (18:58)
[2018-03-04 19:22] LABS: Risk Ratio 5.2; Troponin I Only 0.021 NG/ML (0.00-0.045)
[2018-03-04] MEDS ORDERED: clonazePAM 0.5 MG TABLET PO SCH (22:00)
[2018-03-05 01:03] LABS: Basophils % 0.5 % (0.0-0.8); Eosinophils # 0.2 10*3/uL (0.0-0.87); Eosinophils % 3.2 % (0.00-10.9); Hematocrit 36.3 VOL% (35.7-47.0); Hemoglobin 11.9 GM/DL (12.0-16.0); Immature Granulocytes % 0.3 %; Immature Granulocytes Absolute 0.02 #; Lymphocytes # 1.7 10*3/uL (1.4-4.0); Lymphocytes % 22.1 % (21.3-54.2); Mean Corpuscular HGB Conc 32.8 GM/DL (32-36); Mean Corpuscular Hemoglobin 32 PG (27-34); Mean Corpuscular Volume 98.9 FL (87-102); Mean Platelet Volume 11.9 FL (9.6-12.0); Monocytes # 0.8 10*3/uL (0.11-0.8); Monocytes % 10.2 % (1.7-12.7); Neutrophils # 4.7 10*3/uL (1.4-7.4); Neutrophils % 63.7 % (38.7-73.9); Platelet Count 113 T/CUMM (130-400); Red Blood Count 3.67 MC/CUMM (3.8-5.5); Red Cell Distribution Width 13.9 % (9.3-17.3); White Blood Count 7.5 T/CUMM (4-12)
[2018-03-05 01:19] LABS: Calcium 8.6 MG/DL (8.5-10.1); Osmolality,Calculated 296.7 MOS/KG (273-304); Potassium 3.7 MMOL/L (3.5-5.1)
[2018-03-05] MEDS ORDERED: ONDANSETRON 4 MG TABLET PO PRN (08:51)
[2018-03-05] MEDS ORDERED: clonazePAM 0.5 MG TABLET PO PRN (08:51)
[2018-03-05] MEDS ORDERED: CLORAZEPATE 7.5 MG TABLET PO PRN (08:51)
[2018-03-05] MEDS ORDERED: PANTOPRAZOLE 40 MG TABLET PO SCH ×2 (09:00)
[2018-03-05] MEDS ORDERED: POTASSIUM CHLORIDE 10 MEQ TABLET PO SCH (09:00)
[2018-03-05] MEDS ORDERED: ASPIRIN EC 81 MG TABLET PO SCH (09:00)
[2018-03-05] MEDS ORDERED: MULTIVITAMIN (OCUVITE) TABLET PO SCH (09:00)
[2018-03-05] MEDS ORDERED: APIXABAN 2.5 MG TABLET PO SCH (09:00)
[2018-03-05] MEDS ORDERED: ALLOPURINOL 100 MG TABLET PO SCH (09:00)
[2018-03-05] MEDS ORDERED: DILTIAZEM CD 120 MG CAPSULE PO SCH (09:00)
[2018-03-05] MEDS ORDERED: FUROSEMIDE 20 MG TABLET PO SCH (09:00)
[2018-03-05] MEDS ORDERED: MULTIVITAMIN (CENTRUM) TABLET PO SCH (09:00)
[2018-03-05] MEDS ORDERED: ZINC OXIDE PASTE 113 GM TUBE TOP SCH (10:30)
[2018-03-05 13:26] VITALS: BP 160/66
[2018-03-05] MEDS ORDERED: clonazePAM 0.5 MG TABLET PO SCH (21:00)
[2018-03-05] MEDS ORDERED: CLORAZEPATE 7.5 MG TABLET PO SCH (21:00)
== END 2018-03-05 17:55 | disposition home health service (06) | DRG 65 ==
LOC: EDBD → EDUNIT# → N.ED 15:51 → N.EDINP 18:38 → N.4E 20:51
PROVIDERS: ADMIT Internal Medicine; ATTEND Internal Medicine